=== PATIENT | male | born 1935 | race Caucasian/White ===

== ENCOUNTER 2016-08-25 19:18 | Inpatient (IN) | payer MEDICARE ==
[2016-08-25] MEDS ORDERED: NS 0.9% 1000 ML* 1,000 ML IV ONE (20:11)
[2016-08-25] MEDS ORDERED: Acetaminophen TAB* 325 MG PO ONE (20:11)
--- NOTE | 2016-08-25 20:28 | ED ---
Elder Veras Adam, scribed for Sang Awad MD on 08/25/16 at 2004 . HPI Febrile Illness - HPI Summary HPI Summary: Pt is an 80 year old male presenting with a febrile illness. He has not been feeling well since yesterday with generalized weakness and fatigue. His temperature was 102 F at home today. He has not taken anything for the fever. He also reports some constipation. He denies vomiting and diarrhea. Pt has an ostomy and he has had sepsis before. PMHx of HTN, A Fib, DVT, and bladder/ prostate CA. Surgical Hx of cystectomy and nephrectomy. - History of Current Complaint Chief Complaint: EDFever Time Seen by Provider: 08/25/16 19:57 Hx Obtained From: Patient Onset/Duration: Started Days Ago, Atraumatic, Still Present Timing: Constant, Lasting Days Initial Severity: Moderate Current Severity: Moderate Aggravating Factors: Nothing Alleviating Factors: Nothing - Hasn't taken anything Associated Signs and Symptoms: Weakness - Allergy/Home Medications Allergies/Adverse Reactions: Allergies Allergy/AdvReac Type Severity Reaction Status Date / Time Cephalexin [From Keflex] Allergy Rash And Verified 08/25/16 19:28 Itching Sulfamethoxazole Allergy Swelling Verified 08/25/16 19:28 w/Trimethoprim Of [From Bactrim] Face,Lips,& Throat Atorvastatin [From Lipitor] AdvReac Muscle Ache Verified 08/26/16 00:32 Ezetimibe [From Zetia] AdvReac Muscle Ache Verified 08/26/16 00:32 Gemfibrozil [From Lopid] AdvReac Muscle Ache Verified 08/26/16 00:32 PMH/Surg Hx/FS Hx/Imm Hx Endocrine/Hematology History: Reports: Hx Anticoagulant Therapy Comment Only: Hx Thyroid Disease - family hx Cardiovascular History: Reports: Hx Angina, Hx Deep Vein Thrombosis, Hx Hypertension, Hx Syncope, Other Cardiovascular Problems/Disorders - A-FIB, PATIENT STATES BEING CARED FOR BY DR. 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 2011-KIDNEY REMOVAL. 4-5 YRS AGO- RIGHT EYE CATARACT SURGERY Hx Anesthesia Reactions: No Infectious Disease History: Yes Infectious Disease History: Denies: Hx Clostridium Difficile, Hx Hepatitis, Hx Human Immunodeficiency Virus (HIV), Traveled Outside the [place] in Last 30 Days - Family History Known Family History: Positive: Other - Negative: malignant hyperthermia, anesthesia reaction - Social History Occupation: Retired Lives: Alone Alcohol Use: None Hx Substance Use: No Substance Use Type: Reports: None Hx Tobacco Use: No Smoking Status (MU): Never Smoked Tobacco Review of Systems Positive: Fever Positive: Other - Constipation. Negative: Vomiting, Diarrhea Positive: Weakness All Other Systems Reviewed And Are Negative: Yes Physical Exam Triage Information Reviewed: Yes Vital Signs On Initial Exam: Initial Vitals Temp Pulse Resp BP Pulse Ox 101.5 F 109 18 142/75 94 08/25/16 19:19 08/25/16 19:19 08/25/16 19:19 08/25/16 19:19 08/25/16 19:19 Vital Signs Reviewed: Yes Appearance: Positive: No Pain Distress, Ill-Appearing Skin: Positive: Warm, Dry Eyes: Positive: BEKAH ENT: Positive: Hearing grossly normal Neck: Positive: Supple Respiratory/Lung Sounds: Positive: Clear to Auscultation Cardiovascular: Positive: RRR Abdomen Description: Positive: Nontender, Soft, Other: - draining urostomy Bowel Sounds: Positive: Present Musculoskeletal: Positive: Strength/ROM Intact Neurological: Positive: Alert, Oriented to Person Place, Time Psychiatric: Positive: Affect/Mood Appropriate Diagnostics - Vital Signs Vital Signs Temp Pulse Resp BP Pulse Ox 08/25/16 19:19 101.5 F 109 18 142/75 94 - Laboratory Result Diagrams: 08/25/16 20:25 08/25/16 20:25 Lab Statement: Any lab studies that have been ordered have been reviewed, and results considered in the medical decision making process. - Radiology CXR Radiology Interpretation Completed By: Radiologist - IMPRESSION: NO ACTIVE DISEASE. - EKG 20:56 Cardiac Rate: NL - 89 BPM EKG Rhythm: Atrial Fibrillation - Moderate ventricular response - Additional Comments Diagnostic Additional Comments: Troponin I - 0.06 Course/Dx - Diagnoses Provider Diagnoses: UTI (urinary tract infection) - Provider Notifications Discussed Care Of Patient With: Dr. Alejandra. Patient will be admitted. Instructed by Provider To: Admit As Inpatient Discharge - Discharge Plan Condition: Guarded Disposition: ADMITTED TO [facility] documentation as recorded by the Elder huynh Adam accurately reflects the service I personally performed and the decisions made by me, Sang Awad MD.
[2016-08-25 20:39] LABS: Hematocrit 37 % (42-52); Mean Corpuscular HGB Conc 33 g/dl (31-36); Mean Corpuscular Hemoglobin 31 pg (27-31); Mean Corpuscular Volume 94 fL (80-94); Mean Platelet Volume 9 um3 (7.4-10.4); Red Blood Count 3.95 10^6/ul (4.0-5.4); Red Cell Distribution Width 15 % (10.5-15); White Blood Count 5.5 10^3/ul (3.5-10.8)
[2016-08-25 20:55] LABS: Albumin 3.3 g/dL (3.2-5.2); BUN/Creatinine Ratio 16.8 (8-20); Calcium 8.6 mg/dL (8.6-10.3); EGFR African American 67.7 (>60); EGFR Non-African American 52.6 (>60); Globulin 2.3 g/dL (2-4); Magnesium 1.8 mg/dL (1.9-2.7); Potassium 3.9 mmol/L (3.5-5.0); Total Bilirubin 0.9 mg/dL (0.2-1.0); Total Protein 5.6 g/dL (6.4-8.9)
[2016-08-25 20:58] LABS: Troponin I 0.06 ng/mL (<0.04)
--- NOTE | 2016-08-25 21:05 | RAD ---
INDICATION: Fever COMPARISON: December 19, 2012 TECHNIQUE: AP seated and lateral views were obtained. FINDINGS: Bones/Soft Tissues: There are no acute bony findings. Cardiomediastinal: The cardiomediastinal silhouette is normal. Lungs: There are no infiltrates. Pleura: There are no pleural effusions. Other: None IMPRESSION: NO ACTIVE DISEASE.
[2016-08-25 21:33] LABS: TSH (Thyroid Stimulating Horm) 3.23 mcIU/mL (0.34-5.60)
[2016-08-25 23:26] LABS: Urine Bacteria 1+ (Absent); Urine Bilirubin Negative (Negative); Urine Glucose Negative (Negative); Urine Nitrite Positive (Negative)
[2016-08-26] MEDS ORDERED: Melatonin (NF) 3 MG TAB PO PRN (00:29)
[2016-08-26] MEDS ORDERED: Ondansetron INJ* 2 MG/ML VIAL IV PRN (00:29)
[2016-08-26] MEDS ORDERED: NS 0.9% 1000 ML* 1,000 ML IV SCH (00:30)
[2016-08-26] MEDS ORDERED: Vancomycin per Pharmacy* NOTE FOLLOW UP PRN (00:38)
[2016-08-26] MEDS ORDERED: Vancomycin(*) 1,500 MG in NS 0.9% 250 ML* 250 ML IVPB ONE (01:00)
--- NOTE | 2016-08-26 01:46 | HP ---
H&P (Free Text) History and Physical: PCP: Robert Madrigal MD Date/Time of Evaluation: 08/25/2016 CC: fever HPI: Mr Ivan is an 80M HX AFIB, bladder CA presents with onset over the past 24hours of malaise, generalized weakness with finding of fever up to 102F at home which prompted him to present. He denies cough, congestion, sweats, abdominal pain, open wound, or other issues. He does have frequent UTIs and had a urine CX done 08/16/2016 in anticipation of having his ureteral stent replaced by Bruna Morrison MD interventional radiology this coming Tuesday. He was to hold his warfarin for this procedure starting tomorrow. Work up reveals a UTI with multiple resistances per recent CX complicated by multiple ABX allergies. As such he will be admitted for febrile UTI for IV ABX. PMedHx bladder CA solitary R kidney pAFIB HTN muscular dystrophy restrictive lung disease ISABEL on oxygen HS post-operative RLE arterial embolus s/p thrombectomy & fasciotomy Allergies Cephalexin [From Keflex] Allergy (Verified 08/25/16 19:28) Rash And Itching Sulfamethoxazole w/Trimethoprim [From Bactrim] Allergy (Verified 08/25/16 19:28) Swelling Of Face,Lips,& Throat Atorvastatin [From Lipitor] Adverse Reaction (Verified 08/26/16 00:32) Muscle Ache Ezetimibe [From Zetia] Adverse Reaction (Verified 08/26/16 00:32) Muscle Ache Gemfibrozil [From Lopid] Adverse Reaction (Verified 08/26/16 00:32) Muscle Ache Ambulatory Orders Warfarin Sodium 2 tab PO DAILY 11/07/12 Digoxin TAB* [Lanoxin TAB*] 0.25 mg PO DAILY 05/05/16 Diltiazem CD CAP* [Cardizem CD CAP*] 180 mg PO DAILY 05/05/16 Metoprolol Tartrate TAB* [Lopressor TAB*] 25 mg PO BID 05/05/16 Doxazosin Mesylate [Cardura] 2 mg PO QPM 05/11/16 Ferrous Sulfate [Iron (Ferrous Sulfate)] 50 mg PO DAILY 06/09/16 Multiple Vitamin [Multivitamins] 1 cap PO DAILY 06/09/16 PSurgHx L nephrectomy complicated by RLE arterial embolus w/ thrombectomy & fasciotomy urostomy OU cataract extraction SocHx: no tobacco, alcohol, or recreational drugs; 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 Mother passed of CVA at 102. ROS: as above, otherwise reviewed and all were negative Constitutional: NAD, normally developed, obese white male vitals: Vital Signs Temp 38.0 C 08/26/16 01:07 Pulse 88 08/26/16 01:07 Resp 22 08/26/16 01:07 BP 119/60 08/26/16 01:07 Pulse Ox 94 08/26/16 01:07 Intake & Output 08/25/16 08/25/16 08/26/16 11:59 23:59 11:59 Intake Total 1000 Balance 1000 Weight 111.13 kg Intake: IV Fluids 1000 HEENM: atraumatic; sclera/conjunctiva: non-icteric/clear; hearing: clinically intact; oropharynx: clear, mucosa moist Neck: soft tissue: no nuchal rigidity; thyroid: normal Pulmonary: clear to auscultation bilaterally, good aeration, no accessory muscle use CV: RR/RR, normal S1S2, no carotid bruit, no jugular venous distention, 1+ B DP/ PT, 2+ chronic BLE edema Abdominal: soft, non-distended, non-tender, no rebound/guarding/rigidity, normoactive bowel sounds, no hepatosplenomegaly or masses, no costovertebral angle tenderness Musculoskeletal: general: grossly intact; gait: uses electric wheelchair Integumental: normal appearance and texture Psychiatric orientation: AA&O to PPS affect: calm mood: pleasant eye contact: good content: reliable responses: timely insight: good Testing: Lab Results 08/25/16 08/25/16 08/25/16 Range/Units 20:25 20:25 20:25 WBC 5.5 (3.5-10.8) 10^3/ul RBC 3.95 L (4.0-5.4) 10^6/ul Hgb 12.0 L (14.0-18.0) g/dl Hct 37 L (42-52) % MCV 94 (80-94) fL MCH 31 (27-31) pg MCHC 33 (31-36) g/dl RDW 15 (10.5-15) % Plt Count 122 L (150-450) 10^3/ul MPV 9 (7.4-10.4) um3 Neut % (Auto) 78.2 (38-83) % Lymph % (Auto) 4.7 L (25-47) % Lassen % (Auto) 16.8 H (1-9) % Eos % (Auto) 0.1 (0-6) % Baso % (Auto) 0.2 (0-2) % Absolute Neuts (auto) 4.3 (1.5-7.7) 10^3/ul Absolute Lymphs (auto) 0.3 L (1.0-4.8) 10^3/ul Absolute Monos (auto) 0.9 H (0-0.8) 10^3/ul Absolute Eos (auto) 0 (0-0.6) 10^3/ul Absolute Basos (auto) 0 (0-0.2) 10^3/ul Absolute Nucleated RBC 0 10^3/ul Nucleated RBC % 0 Sodium 136 (133-145) mmol/L Potassium 3.9 (3.5-5.0) mmol/L Chloride 101 (101-111) mmol/L Carbon Dioxide 30 (22-32) mmol/L Anion Gap 5 (2-11) mmol/L BUN 22 (6-24) mg/dL Creatinine 1.31 H (0.67-1.17) mg/dL Est GFR ( Amer) 67.7 (>60) Est GFR (Non-Af Amer) 52.6 (>60) BUN/Creatinine Ratio 16.8 (8-20) Glucose 128 H (70-100) mg/dL Lactic Acid 1.3 (0.5-2.0) mmol/L Calcium 8.6 (8.6-10.3) mg/dL Magnesium 1.8 L (1.9-2.7) mg/dL Total Bilirubin 0.90 (0.2-1.0) mg/dL AST 11 L (13-39) U/L ALT 14 (7-52) U/L Alkaline Phosphatase 44 (34-104) U/L Troponin I 0.06 H* (<0.04) ng/mL Total Protein 5.6 L (6.4-8.9) g/dL Albumin 3.3 (3.2-5.2) g/dL Globulin 2.3 (2-4) g/dL Albumin/Globulin Ratio 1.4 (1-3) TSH 3.23 (0.34-5.60) mcIU/mL Urine Color Urine Appearance Urine pH (5-9) Ur Specific [place] (1.010-1.030) Urine Protein (Negative) Urine Ketones (Negative) Urine Blood (Negative) Urine Nitrate (Negative) Urine Bilirubin (Negative) Urine Urobilinogen (Negative) Ur Leukocyte Esterase (Negative) Urine WBC (Auto) (Absent) Urine RBC (Auto) (Absent) Urine Bacteria (Absent) Urine Glucose (Negative) Influenza A (Rapid) (Negative) Influenza B (Rapid) (Negative) 08/25/16 08/25/16 08/25/16 Range/Units 23:00 23:23 23:40 WBC (3.5-10.8) 10^3/ul RBC (4.0-5.4) 10^6/ul Hgb (14.0-18.0) g/dl Hct (42-52) % MCV (80-94) fL MCH (27-31) pg MCHC (31-36) g/dl RDW (10.5-15) % Plt Count (150-450) 10^3/ul MPV (7.4-10.4) um3 Neut % (Auto) (38-83) % Lymph % (Auto) (25-47) % Lassen % (Auto) (1-9) % Eos % (Auto) (0-6) % Baso % (Auto) (0-2) % Absolute Neuts (auto) (1.5-7.7) 10^3/ul Absolute Lymphs (auto) (1.0-4.8) 10^3/ul Absolute Monos (auto) (0-0.8) 10^3/ul Absolute Eos (auto) (0-0.6) 10^3/ul Absolute Basos (auto) (0-0.2) 10^3/ul Absolute Nucleated RBC 10^3/ul Nucleated RBC % Sodium (133-145) mmol/L Potassium (3.5-5.0) mmol/L Chloride (101-111) mmol/L Carbon Dioxide (22-32) mmol/L Anion Gap (2-11) mmol/L BUN (6-24) mg/dL Creatinine (0.67-1.17) mg/dL Est GFR ( Amer) (>60) Est GFR (Non-Af Amer) (>60) BUN/Creatinine Ratio (8-20) Glucose (70-100) mg/dL Lactic Acid (0.5-2.0) mmol/L Calcium (8.6-10.3) mg/dL Magnesium (1.9-2.7) mg/dL Total Bilirubin (0.2-1.0) mg/dL AST (13-39) U/L ALT (7-52) U/L Alkaline Phosphatase (34-104) U/L Troponin I 0.06 H* (<0.04) ng/mL Total Protein (6.4-8.9) g/dL Albumin (3.2-5.2) g/dL Globulin (2-4) g/dL Albumin/Globulin Ratio (1-3) TSH (0.34-5.60) mcIU/mL Urine Color Danette Urine Appearance Cloudy Urine pH 5.0 (5-9) Ur Specific [place] 1.023 (1.010-1.030) Urine Protein 2+(100 mg/dl) H (Negative) Urine Ketones Negative (Negative) Urine Blood 2+ H (Negative) Urine Nitrate Positive H (Negative) Urine Bilirubin Negative (Negative) Urine Urobilinogen Negative (Negative) Ur Leukocyte Esterase 3+ H (Negative) Urine WBC (Auto) 3+(>20/hpf) H (Absent) Urine RBC (Auto) 3+(>10/hpf) H (Absent) Urine Bacteria 1+ H (Absent) Urine Glucose Negative (Negative) Influenza A (Rapid) Negative (Negative) Influenza B (Rapid) Negative (Negative) ECG, personally reviewed: AFIB rate 89, no ischemia CXR, personally reviewed: IMPRESSION: NO ACTIVE DISEASE. Impression: 80M presenting with fever 2nd complex UTI DIAGNOSIS & PLAN Primary fever 2nd complicated UTI : IV vancomycin & meropenem : monitor renal function elevated troponin : suspect demand ischemia : telemetry : trend : recheck ECG in AM Secondary bladder CA : HX L nephrectomy & urostomy : monitor renal function while on vancomycin pAFIB : rate controlled : continue warfarin, metoprolol, diltiazem, & digoxin HTN : continue metoprolol & diltiazem restrictive lung disease : no acute issues ISABEL : continue oxygen HS Admission Rational: inpatient for complicated UTI requiring IV ABX & monitoring of elevated troponin DVTp: warfarin once dosage reconciled Code Status: full HCP: daughterCarlotta
[2016-08-26] MEDS: Meropenem 1 GM PREMIX(*) 1 GM/50 ML BAG IV SCH ×3 (02:47→17:53)
[2016-08-26] MEDS ORDERED: NS 0.9% 250 ML* 250 ML ONE (03:31)
[2016-08-26] MEDS: Omeprazole CAP* 20 MG PO SCH (05:39)
[2016-08-26 07:49] LABS: Hematocrit 33 % (42-52); Hemoglobin 10.8 g/dl (14.0-18.0); Mean Corpuscular HGB Conc 33 g/dl (31-36); Mean Corpuscular Hemoglobin 31 pg (27-31); Mean Corpuscular Volume 94 fL (80-94); Mean Platelet Volume 9 um3 (7.4-10.4); Red Blood Count 3.49 10^6/ul (4.0-5.4); Red Cell Distribution Width 15 % (10.5-15); White Blood Count 4.8 10^3/ul (3.5-10.8)
[2016-08-26 08:09] LABS: BUN/Creatinine Ratio 16.9 (8-20); Calcium 8.2 mg/dL (8.6-10.3); EGFR African American 64.8 (>60); EGFR Non-African American 50.4 (>60); Potassium 4.3 mmol/L (3.5-5.0)
[2016-08-26 08:13] LABS: Add Diff/Slide Review? Slide Review Added; Comments Flag Yes
[2016-08-26 08:17] LABS: Troponin I 0.05 ng/mL (<0.04)
[2016-08-26] MEDS: Digoxin TAB* 0.25 MG PO SCH (08:56)
[2016-08-26] MEDS: Docusate CAP* 100 MG PO SCH ×2 (08:56→21:32)
[2016-08-26] MEDS: Metoprolol Tartrate TAB* 25 MG PO SCH ×2 (08:56→21:32)
[2016-08-26] MEDS: Diltiazem CD CAP* 180 MG PO SCH (08:57)
--- NOTE | 2016-08-26 14:30 | PN ---
Subjective Date of Service: 08/26/16 Interval History: patient reports he feels much better today. Denies fever or chills. reports good appetite. No N/V/D. Objective Active Medications: Acetaminophen (Tylenol Tab*) 650 mg PO Q6H PRN PRN Reason: FEVER/PAIN Digoxin (Lanoxin Tab*) 0.25 mg PO DAILY [facility] Last Admin: 08/26/16 08:56 Dose: 0.25 mg Diltiazem HCl (Cardizem Cd Cap*) 180 mg PO DAILY [facility] Last Admin: 08/26/16 08:57 Dose: 180 mg Docusate Sodium (Colace Cap*) 200 mg PO BID [facility] Last Admin: 08/26/16 08:56 Dose: 200 mg Doxazosin Mesylate (Cardura Tab*) 2 mg PO QPM [facility] Sodium Chloride (Ns 0.9% 1000 Ml*) 1,000 mls @ 75 mls/hr IV PER RATE [facility] Meropenem (Merrem 1 Gm Premix(*)) 1 gm in 50 mls @ 100 mls/hr IV Q8H [facility] Last Admin: 08/26/16 08:57 Dose: 100 mls/hr Vancomycin HCl 1,250 mg/ (Sodium Chloride) 250 mls @ 166.667 mls/hr IVPB Q12H [facility] Melatonin (Melatonin (Nf)) 3 mg PO BEDTIME PRN; Protocol PRN Reason: Sleep Metoprolol Tartrate (Lopressor Tab*) 25 mg PO BID [facility] Last Admin: 08/26/16 08:56 Dose: 25 mg Omeprazole (Prilosec Cap*) 20 mg PO DAILY@0600 [facility] Last Admin: 08/26/16 05:39 Dose: 20 mg Ondansetron HCl (Zofran Inj*) 4 mg IV Q6H PRN PRN Reason: NAUSEA Pharmacy Consult (Vancomycin Per Pharmacy*) 1 note FOLLOW UP . PRN PRN Reason: PER PROTOCOL Pharmacy Profile Note (Vancomycin Trough Check) 1 note FOLLOW UP 1530 ONE Stop: 08/27/16 15:31 Vital Signs 08/26/16 08/26/16 08/26/16 01:07 02:11 02:55 Temperature 100.4 F 99.6 F 99.6 F Pulse Rate 88 93 93 Respiratory 22 25 25 Rate Blood Pressure 119/60 117/58 117/58 (mmHg) O2 Sat by Pulse 94 96 96 Oximetry 08/26/16 08/26/16 08/26/16 04:21 07:31 07:38 Temperature 100.2 F 99.3 F Pulse Rate 87 96 Respiratory 16 22 18 Rate Blood Pressure 124/62 129/69 (mmHg) O2 Sat by Pulse 100 98 Oximetry 08/26/16 08/26/16 08/26/16 07:54 07:56 08:56 Temperature Pulse Rate 96 Respiratory 16 Rate Blood Pressure (mmHg) O2 Sat by Pulse 98 Oximetry 08/26/16 08/26/16 09:12 12:13 Temperature 99.0 F 98.6 F Pulse Rate 103 82 Respiratory 28 20 Rate Blood Pressure 125/60 111/60 (mmHg) O2 Sat by Pulse 97 99 Oximetry Oxygen Devices in Use Now: None Appearance: 80 yo male A+O x3 in NAD. Eyes: No Scleral Icterus, PERRLA Ears/Nose/Mouth/Throat: NL Teeth, Lips, Gums, Mucous Membranes Moist Neck: NL Appearance and Movements; NL JVP Respiratory: Symmetrical Chest Expansion and Respiratory Effort, Clear to Auscultation Cardiovascular: NL Sounds; No Murmurs; No JVD, RRR, - - 2-3+ edema b/l Abdominal: NL Sounds; No Tenderness; No Distention, - - nephrostomy tube noted draining clear yellow urine Skin: No Rash or Ulcers, No Nodules or Sclerosis Neurological: Alert and Oriented x 3, NL Sensation, NL Muscle Strength and Tone Lines/Tubes/Other Access: Clean, Dry and Intact Peripheral IV Nutrition: Taking PO's Result Diagrams: 08/26/16 07:32 08/26/16 07:32 Assess/Plan/Problems-Billing Assessment: 80 yo male with PMH of afib, bladder CA, solitary right kidney, CKD , hx of freqeunt UTIs, with nephrostomy tube with current ureteral stent presents with onset of malaise, generalized weakness, fever 102 for 24 hours - Patient Problems (1) Fever Comment: - Afebrile. No leukocytosis. - suspect secondary to UTI and stent. - ID following. Agrees with Vanco & Meropenum until cultures result. - Plan for IR to exchange nephrostomy & stent on Tuesday - await cxs (2) Elevated troponin Comment: - Troponins 0.06, 0.06, 0.05 - suspect demand ischemia. No CP or EKG changes. - DC tele (3) Bladder cancer Comment: - Hx of left nephrectomy and urostomy (4) Afib Comment: - Hold coumadin for stent/nephrostomy exchange tuesday - continue digoxin, cardizem, metoprolol (5) Chronic kidney disease Comment: - appears to be around baseline (6) HTN (hypertension) Comment: - controlled on home meds. (7) ISABEL (obstructive sleep apnea) Comment: - oxygen at night and while sleeping (8) DVT prophylaxis Comment: - INR 1.73 (9) Full code status Status and Disposition: inpatient. await cultures and continue IV abx. Plan for IR stent exchange Tuesday.
[2016-08-26] MEDS: Vancomycin(*) 1,250 MG in NS 0.9% 250 ML* 250 ML IVPB SCH (15:52)
--- NOTE | 2016-08-26 15:57 | CONS ---
DATE OF CONSULT: 08/26/2016. REQUESTING PHYSICIAN: Dr. Alejandra. CONSULTING SERVICE: Infectious Disease. REASON FOR CONSULT: Fever, urinary tract infection. IMPRESSION: 1. Three days of fever, anorexia, malaise without focal signs or symptoms. His influenza PCR is ne gative. Blood and urine cultures are pending. He does have significant urinary tract abnormalities which may get the most likely source of infection, including urinary tract infection and pigtail dr kirann infection. Urine culture end of July grew Providencia, MRSA, and enterococcus. 2. History of bladder cancer, status post cystectomy and ileal conduit, and now with a urinary ileo stomy catheter which is exchanged every six weeks by Dr. Morrison. 3. Status post left nephrectomy. 4. ALLERGY TO KEFLEX AND BACTRIM, both of which cause rash according his primary care doctor's offi ce notes. 5. Muscular dystrophy. RECOMMENDATION: Continue Vancomycin, goal trough 15 to 20 and Meropenem while we are awaiting for t he urine and blood culture results. He is due for a stent change on Tuesday. I do still think he sh ould have the exchange while on IV antibiotics for the presumed stent infection. HISTORY OF PRESENT ILLNESS: This is an 81-year-old man with muscular dystrophy and right-sided ilea l conduit and ileal conduit urinary ileostomy catheter admitted with fever and chills. He had been well until Tuesday when he started to get chills, sweats, decreased appetite. It got worse over the next two days. His temperature was 102 on the night of the , so he came in to the ER. His whit e blood cell count was 5, he was febrile to 38.6. He was given fluids and Vancomycin and Meropenem. He had a urine culture on August 16 that grew Providencia, MRSA, and enterococcus. 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 His last fever was at one in the morning. This morning h e says his energy and appetite are a little bit better. He has had no pain, including no joint or s pine pain, no rash or diarrhea, and no other abdominal symptoms. No cough or significant muscle ach es. PAST MEDICAL HISTORY: 1. Muscular dystrophy. 2. Atrial fibrillation. 3. Hypertension. 4. Restrictive lung disease. 5. Obstructive sleep apnea. 6. History of right lower extremity arterial thrombus, status post thrombectomy and fasciotomy lynn gallegos was a postoperative thrombus. 7. Bladder cancer, status post cystectomy and ileal conduit and then a subsequent left nephrectomy, now with a urinary ileostomy catheter and ureteral stent. MEDICATIONS: Tylenol, Digoxin, Diltiazem, Doxazosin, Melatonin, Meropenem 1 gm every 8 hours, Metop rolol, Omeprazole, Zofran, Vancomycin 1250 mg every 12 hours. ALLERGIES: KEFLEX CAUSED RASH, LIPITOR, ZETIA, BACTRIM. FAMILY HISTORY: His father had a stroke, mother had a stroke, they are both . SOCIAL HISTORY: Lives in [place] with his . He has no travel or sick contacts. REVIEW OF SYSTEMS: Twelve point review of systems was obtained. It was negative as noted above. PHYSICAL EXAM: General: He is not distressed or diaphoretic. Vital Signs: Temperature 37, heart r ate 100, respiratory rate 20, blood pressure 120/60, O2 sat 97 percent on room air. HEENT: There i s no conjunctival hemorrhage. Oropharynx without lesions. Neck: Supple without nuchal rigidity. Lymph Nodes: There is no cervical, supraclavicular, inguinal, axillary, or epitrochlear lymphadenop athy. Heart: Regular rate and rhythm without murmurs, rubs or gallops. Lungs: Clear to auscultati on bilaterally. Abdomen: Soft, nontender, nondistended. There is a right lower quadrant ileostomy bag with clear urine and air. Musculoskeletal: There is no spine tenderness of palpation or joint synovitis. Neurological: He is awake and oriented times three, follows all commands. Cranial nerve s II through XII are intact. DIAGNOSTIC STUDIES/LAB DATA: White blood cell count 4.8, hemoglobin 10.8, platelets 99,000. Creati nine 1.3. Influenza PCR negative. Urinalysis shows protein, blood, nitrates, and leukocyte esteras e. Please see impressions and recommendation as outlined above. I have discussed the case with Evens Goldman ch, NP and Dr. Cervantes. Thank you for asking me to see Mr. Love in consultation. [id number]/[facility] #: [id number]
[2016-08-26] MEDS: Doxazosin TAB* 2 MG PO SCH (17:53)
[2016-08-26] MEDS: NS 0.9% 1000 ML* 1,000 ML IV SCH (21:33)
[2016-08-27] MEDS: Meropenem 1 GM PREMIX(*) 1 GM/50 ML BAG IV SCH ×2 (02:15→08:29)
[2016-08-27] MEDS: Vancomycin(*) 1,250 MG in NS 0.9% 250 ML* 250 ML IVPB SCH ×2 (04:13→16:06)
[2016-08-27] MEDS: Acetaminophen TAB* 325 MG PO PRN (04:21)
[2016-08-27 06:00] LABS: Hematocrit 34 % (42-52); Hemoglobin 10.8 g/dl (14.0-18.0); Mean Corpuscular HGB Conc 32 g/dl (31-36); Mean Corpuscular Hemoglobin 31 pg (27-31); Mean Corpuscular Volume 97 fL (80-94); Red Blood Count 3.49 10^6/ul (4.0-5.4); Red Cell Distribution Width 15 % (10.5-15)
[2016-08-27 06:02] LABS: Comments Flag Yes
[2016-08-27 06:03] LABS: Add Diff/Slide Review? Manual Diff Added
[2016-08-27] MEDS: Omeprazole CAP* 20 MG PO SCH (06:13)
[2016-08-27 06:22] LABS: Calcium 8.2 mg/dL (8.6-10.3); EGFR African American 70.2 (>60); EGFR Non-African American 54.6 (>60); Potassium 4.2 mmol/L (3.5-5.0)
[2016-08-27 06:29] LABS: White Blood Count 5.2 10^3/ul (3.5-10.8)
[2016-08-27 06:33] LABS: Eosinophils % 2 % (0-6); Hypochromasia 1+; Immature Granulocytes 1 % (0-9); Neutrophil % 66 % (38-83)
[2016-08-27 06:35] LABS: Add Path Review? YES
--- NOTE | 2016-08-27 07:33 | PN ---
Subjective Date of Service: 08/27/16 Interval History: . Patient reports he feels much better. Denies fever or chills. No N/V/D. No CP or SOB Objective Active Medications: Acetaminophen (Tylenol Tab*) 650 mg PO Q6H PRN PRN Reason: FEVER/PAIN Last Admin: 08/27/16 04:21 Dose: 650 mg Digoxin (Lanoxin Tab*) 0.25 mg PO DAILY [facility] Last Admin: 08/26/16 08:56 Dose: 0.25 mg Diltiazem HCl (Cardizem Cd Cap*) 180 mg PO DAILY [facility] Last Admin: 08/26/16 08:57 Dose: 180 mg Docusate Sodium (Colace Cap*) 200 mg PO BID [facility] Last Admin: 08/26/16 21:32 Dose: 200 mg Doxazosin Mesylate (Cardura Tab*) 2 mg PO QPM [facility] Last Admin: 08/26/16 17:53 Dose: 2 mg Meropenem (Merrem 1 Gm Premix(*)) 1 gm in 50 mls @ 100 mls/hr IV Q8H [facility] Last Admin: 08/27/16 02:15 Dose: 100 mls/hr Vancomycin HCl 1,250 mg/ (Sodium Chloride) 250 mls @ 166.667 mls/hr IVPB Q12H [facility] Last Admin: 08/27/16 04:13 Dose: 166.667 mls/hr Sodium Chloride (Ns 0.9% 1000 Ml*) 1,000 mls @ 50 mls/hr IV PER RATE [facility] Last Admin: 08/26/16 21:33 Dose: 50 mls/hr Melatonin (Melatonin (Nf)) 3 mg PO BEDTIME PRN; Protocol PRN Reason: Sleep Metoprolol Tartrate (Lopressor Tab*) 25 mg PO BID [facility] Last Admin: 08/26/16 21:32 Dose: 25 mg Omeprazole (Prilosec Cap*) 20 mg PO DAILY@0600 [facility] Last Admin: 08/27/16 06:13 Dose: 20 mg Ondansetron HCl (Zofran Inj*) 4 mg IV Q6H PRN PRN Reason: NAUSEA Pharmacy Consult (Vancomycin Per Pharmacy*) 1 note FOLLOW UP . PRN PRN Reason: PER PROTOCOL Pharmacy Profile Note (Vancomycin Trough Check) 1 note FOLLOW UP 1530 ONE Stop: 08/27/16 15:31 Vital Signs 08/26/16 08/26/16 08/26/16 07:31 07:38 07:54 Temperature 99.3 F Pulse Rate 96 Respiratory 22 18 16 Rate Blood Pressure 129/69 (mmHg) O2 Sat by Pulse 98 Oximetry 08/26/16 08/26/16 08/26/16 07:56 08:56 09:12 Temperature 99.0 F Pulse Rate 96 103 Respiratory 28 Rate Blood Pressure 125/60 (mmHg) O2 Sat by Pulse 98 97 Oximetry 08/26/16 08/26/16 08/26/16 12:13 15:16 20:00 Temperature 98.6 F 100.1 F Pulse Rate 82 85 Respiratory 20 20 28 Rate Blood Pressure 111/60 133/56 (mmHg) O2 Sat by Pulse 99 99 Oximetry 08/26/16 08/27/16 08/27/16 21:15 00:08 00:42 Temperature 98.4 F Pulse Rate 93 94 Respiratory 16 Rate Blood Pressure 119/63 117/56 (mmHg) O2 Sat by Pulse 98 99 98 Oximetry 08/27/16 08/27/16 03:35 04:30 Temperature 98.3 F Pulse Rate 89 Respiratory 20 Rate Blood Pressure 105/60 (mmHg) O2 Sat by Pulse 98 97 Oximetry Oxygen Devices in Use Now: None Appearance: eldelry male sitting up in bed in NAD. A+O x3 in NAD Eyes: No Scleral Icterus, PERRLA Ears/Nose/Mouth/Throat: NL Teeth, Lips, Gums, Mucous Membranes Moist Neck: NL Appearance and Movements; NL JVP Respiratory: Symmetrical Chest Expansion and Respiratory Effort, Clear to Auscultation Cardiovascular: NL Sounds; No Murmurs; No JVD, RRR, - - 2-3 + B/L LE edema Abdominal: NL Sounds; No Tenderness; No Distention Lymphatic: No Cervical Adenopathy Extremities: No Clubbing, Cyanosis Neurological: Alert and Oriented x 3, NL Sensation, NL Muscle Strength and Tone Lines/Tubes/Other Access: Clean, Dry and Intact Peripheral IV Nutrition: Taking PO's Result Diagrams: 08/27/16 05:40 08/27/16 05:40 Assess/Plan/Problems-Billing Assessment: 80 yo male with PMH of afib, bladder CA s/p Left nephrectomy, cystectomy and ileal conduit now with ileostomy catheter which is exchanged every six weeks, CKD, hx of frequent UTIs, presents with onset of malaise, generalized weakness, fever x 1 day - Patient Problems (1) Fever Comment: - Low grade temp yesterday, no afebrile. No leukocytosis. - suspect secondary to UTI and stent. - ID following. Continue Vanco & Meropenum until cultures result. Blood cx negative, urine cx still pending. - Plan for IR to exchange stent on Tuesday (2) Elevated troponin Comment: - Troponins 0.06, 0.06, 0.05 - suspect demand ischemia. No CP or EKG changes. - DC tele (3) Bladder cancer Comment: - Hx of left nephrectomy and urostomy (4) Afib Comment: - Hold coumadin for stent exchange tuesday - continue digoxin, cardizem, metoprolol (5) Chronic kidney disease Comment: - appears to be around baseline (6) HTN (hypertension) Comment: - controlled on home meds. (7) ISABEL (obstructive sleep apnea) Comment: - oxygen at night and while sleeping (8) DVT prophylaxis Comment: - INR 1.73 (9) Full code status Status and Disposition: inpatient. await cultures and continue IV abx. Plan for IR stent exchange Tuesday.
[2016-08-27] MEDS: Docusate CAP* 100 MG PO SCH ×2 (08:29→22:55)
[2016-08-27] MEDS: Diltiazem CD CAP* 180 MG PO SCH (08:29)
[2016-08-27] MEDS: Metoprolol Tartrate TAB* 25 MG PO SCH ×2 (08:30→22:56)
[2016-08-27] MEDS: Digoxin TAB* 0.25 MG PO SCH (08:30)
--- NOTE | 2016-08-27 14:12 | RAD ---
Indication: Urinary tract infection. Post LEFT nephrectomy. Comparison: January 22, 2011 CT. Technique: RIGHT unilateral renal ultrasound. Report: 15.1 x 6.7 x 4.9 cm RIGHT kidney demonstrates normal cortical echogenicity and absence of conspicuous stones, focal lesions, or hydronephrosis. Blood flow at the arcuate vessels demonstrated on Doppler. Negative for perinephric fluid. IMPRESSION: Negative RIGHT renal ultrasound.
[2016-08-27] MEDS ORDERED: Vancomycin Trough Check NOTE FOLLOW UP ONE (15:30)
[2016-08-27] MEDS: Doxazosin TAB* 2 MG PO SCH (17:44)
[2016-08-28] MEDS: Acetaminophen TAB* 325 MG PO PRN (00:04)
[2016-08-28] MEDS: NS 0.9% 1000 ML* 1,000 ML IV SCH (02:15)
[2016-08-28] MEDS: Vancomycin(*) 1,250 MG in NS 0.9% 250 ML* 250 ML IVPB SCH ×2 (04:37→15:37)
[2016-08-28] MEDS: Omeprazole CAP* 20 MG PO SCH (05:54)
[2016-08-28 06:09] LABS: Hematocrit 32 % (42-52); Hemoglobin 10.9 g/dl (14.0-18.0); Mean Corpuscular HGB Conc 34 g/dl (31-36); Mean Corpuscular Hemoglobin 32 pg (27-31); Mean Corpuscular Volume 94 fL (80-94); Mean Platelet Volume 9 um3 (7.4-10.4); Red Blood Count 3.43 10^6/ul (4.0-5.4); Red Cell Distribution Width 14 % (10.5-15); White Blood Count 2.4 10^3/ul (3.5-10.8)
[2016-08-28 06:10] LABS: Add Diff/Slide Review? Slide Review Added; Comments Flag Yes
[2016-08-28 06:23] LABS: BUN/Creatinine Ratio 21.1 (8-20); Calcium 8.2 mg/dL (8.6-10.3); EGFR African American 72.8 (>60); EGFR Non-African American 56.6 (>60); Potassium 4.5 mmol/L (3.5-5.0)
--- NOTE | 2016-08-28 08:09 | PN ---
Subjective Date of Service: 08/28/16 Interval History: Patient reports he continues to feel good and much better since admission. Denies fever or chills. No abdominal pain. No N/V/D. Objective Active Medications: Acetaminophen (Tylenol Tab*) 650 mg PO Q6H PRN PRN Reason: FEVER/PAIN Last Admin: 08/28/16 00:04 Dose: 650 mg Digoxin (Lanoxin Tab*) 0.25 mg PO DAILY [facility] Last Admin: 08/27/16 08:30 Dose: 0.25 mg Diltiazem HCl (Cardizem Cd Cap*) 180 mg PO DAILY [facility] Last Admin: 08/27/16 08:29 Dose: 180 mg Docusate Sodium (Colace Cap*) 200 mg PO BID [facility] Last Admin: 08/27/16 22:55 Dose: Not Given Doxazosin Mesylate (Cardura Tab*) 2 mg PO QPM [facility] Last Admin: 08/27/16 17:44 Dose: 2 mg Vancomycin HCl 1,250 mg/ (Sodium Chloride) 250 mls @ 166.667 mls/hr IVPB Q12H [facility] Last Admin: 08/28/16 04:37 Dose: 166.667 mls/hr Sodium Chloride (Ns 0.9% 1000 Ml*) 1,000 mls @ 50 mls/hr IV PER RATE [facility] Last Admin: 08/28/16 02:15 Dose: 50 mls/hr Melatonin (Melatonin (Nf)) 3 mg PO BEDTIME PRN; Protocol PRN Reason: Sleep Metoprolol Tartrate (Lopressor Tab*) 25 mg PO BID [facility] Last Admin: 08/27/16 22:56 Dose: 25 mg Omeprazole (Prilosec Cap*) 20 mg PO DAILY@0600 [facility] Last Admin: 08/28/16 05:54 Dose: 20 mg Ondansetron HCl (Zofran Inj*) 4 mg IV Q6H PRN PRN Reason: NAUSEA Pharmacy Consult (Vancomycin Per Pharmacy*) 1 note FOLLOW UP . PRN PRN Reason: PER PROTOCOL Vital Signs 08/27/16 08/27/16 08/27/16 08:25 08:30 16:27 Temperature 98.2 F Pulse Rate 63 89 90 Respiratory 16 22 Rate Blood Pressure 124/48 117/61 (mmHg) O2 Sat by Pulse 98 99 Oximetry 08/27/16 08/27/1608/27/17 16:28 20:00 22:52 Temperature Pulse Rate 96 Respiratory 20 Rate Blood Pressure 123/64 (mmHg) O2 Sat by Pulse 99 Oximetry 08/28/16 08/28/16 00:47 07:57 Temperature 98.9 F Pulse Rate 96 Respiratory 16 Rate Blood Pressure 135/60 (mmHg) O2 Sat by Pulse 98 97 Oximetry Oxygen Devices in Use Now: None Appearance: 80 yo male laying in bed in NAD. A+O x3 Eyes: No Scleral Icterus, PERRLA Ears/Nose/Mouth/Throat: NL Teeth, Lips, Gums, Mucous Membranes Moist Neck: NL Appearance and Movements; NL JVP Respiratory: Symmetrical Chest Expansion and Respiratory Effort, Clear to Auscultation Cardiovascular: NL Sounds; No Murmurs; No JVD, - - 2+ LE edema bilaterally - pt reports this is his baseline Abdominal: NL Sounds; No Tenderness; No Distention, - - Right lower quad ileostomy bag with clear yellow urine Extremities: No Clubbing, Cyanosis Neurological: Alert and Oriented x 3, NL Sensation, NL Muscle Strength and Tone Result Diagrams: 08/28/16 05:44 08/28/16 05:44 Assess/Plan/Problems-Billing Assessment: 80 yo male with PMH of afib, bladder CA s/p Left nephrectomy, cystectomy and ileal conduit now with ileostomy catheter which is exchanged every six weeks, CKD, hx of frequent UTIs, presents with onset of malaise, generalized weakness, fever x 1 day - Patient Problems (1) Fever Comment: - secondary to UTI and stent with urine cx now growing MRSA and Providencia Stuartii, sensitive to Vanco and Girish. Restart Girish as the colony count for PS on 08/16 was growing a colony count >100K. Blood cx negative. - afebrile > 24 hours. Leukopenia suspect secondary to illness, possible abx, recheck labs in am. - ID following. Continue Vanco and Girish - Plan for IR to exchange stent on Tuesday - Recheck labs in am. (2) Elevated troponin Comment: - Troponins 0.06, 0.06, 0.05 - suspect demand ischemia. No CP or EKG changes. - DC tele (3) Bladder cancer Comment: - Hx of left nephrectomy and urostomy (4) Afib Comment: - Hold coumadin for stent exchange tuesday - continue digoxin, cardizem, metoprolol (5) Chronic kidney disease Comment: - appears to be around baseline (6) HTN (hypertension) Comment: - controlled on home meds. (7) ISABEL (obstructive sleep apnea) Comment: - oxygen at night and while sleeping (8) DVT prophylaxis Comment: - INR 1.28 (9) Full code status Status and Disposition: inpatient. continue IV abx. Plan for IR stent exchange Tuesday.
[2016-08-28] MEDS: Docusate CAP* 100 MG PO SCH ×2 (09:25→22:56)
[2016-08-28] MEDS: Digoxin TAB* 0.25 MG PO SCH (09:25)
[2016-08-28] MEDS: Diltiazem CD CAP* 180 MG PO SCH (09:25)
[2016-08-28] MEDS: Metoprolol Tartrate TAB* 25 MG PO SCH ×2 (09:26→21:50)
[2016-08-28] MEDS ORDERED: Meropenem 1 GM PREMIX(*) 1 GM/50 ML BAG IV SCH (12:00)
[2016-08-28] MEDS: Doxazosin TAB* 2 MG PO SCH (17:34)
[2016-08-29] MEDS: Vancomycin(*) 1,250 MG in NS 0.9% 250 ML* 250 ML IVPB SCH ×2 (04:25→15:56)
[2016-08-29] MEDS: Omeprazole CAP* 20 MG PO SCH (05:56)
[2016-08-29 06:06] LABS: Calcium 8.2 mg/dL (8.6-10.3); EGFR African American 87.4 (>60)
[2016-08-29 06:09] LABS: Potassium 4.4 mmol/L (3.5-5.0)
[2016-08-29 07:42] LABS: Hematocrit 35 % (42-52); Hemoglobin 11.3 g/dl (14.0-18.0); Mean Corpuscular HGB Conc 33 g/dl (31-36); Mean Corpuscular Hemoglobin 31 pg (27-31); Mean Corpuscular Volume 95 fL (80-94); Mean Platelet Volume 9 um3 (7.4-10.4); Red Blood Count 3.66 10^6/ul (4.0-5.4); Red Cell Distribution Width 15 % (10.5-15)
[2016-08-29 07:43] LABS: Comments Flag Yes; White Blood Count 2.5 10^3/ul (3.5-10.8)
--- NOTE | 2016-08-29 08:28 | PN ---
Subjective Date of Service: 08/29/16 Interval History: Patient reports he "slept well for the first time since being here". Denies fever or chills. No SOB, CP. Offers no complaints today. Objective Active Medications: Acetaminophen (Tylenol Tab*) 650 mg PO Q6H PRN PRN Reason: FEVER/PAIN Last Admin: 08/28/16 00:04 Dose: 650 mg Digoxin (Lanoxin Tab*) 0.25 mg PO DAILY [facility] Last Admin: 08/28/16 09:25 Dose: 0.25 mg Diltiazem HCl (Cardizem Cd Cap*) 180 mg PO DAILY [facility] Last Admin: 08/28/16 09:25 Dose: 180 mg Docusate Sodium (Colace Cap*) 200 mg PO BID [facility] Last Admin: 08/28/16 22:56 Dose: Not Given Doxazosin Mesylate (Cardura Tab*) 2 mg PO QPM [facility] Last Admin: 08/28/16 17:34 Dose: 2 mg Vancomycin HCl 1,250 mg/ (Sodium Chloride) 250 mls @ 166.667 mls/hr IVPB Q12H [facility] Last Admin: 08/29/16 04:25 Dose: 166.667 mls/hr Melatonin (Melatonin (Nf)) 3 mg PO BEDTIME PRN; Protocol PRN Reason: Sleep Metoprolol Tartrate (Lopressor Tab*) 25 mg PO BID [facility] Last Admin: 08/28/16 21:50 Dose: 25 mg Omeprazole (Prilosec Cap*) 20 mg PO DAILY@0600 [facility] Last Admin: 08/29/16 05:56 Dose: 20 mg Ondansetron HCl (Zofran Inj*) 4 mg IV Q6H PRN PRN Reason: NAUSEA Pharmacy Consult (Vancomycin Per Pharmacy*) 1 note FOLLOW UP . PRN PRN Reason: PER PROTOCOL Vital Signs 08/28/16 08/28/16 08/28/16 07:57 08:00 08:35 Temperature 98.5 F Pulse Rate 88 Respiratory 16 16 Rate Blood Pressure 145/73 (mmHg) O2 Sat by Pulse 97 98 Oximetry 08/28/16 08/28/16 08/28/16 09:25 15:48 20:00 Temperature 98.0 F Pulse Rate 88 80 Respiratory 22 20 Rate Blood Pressure 125/66 (mmHg) O2 Sat by Pulse 94 Oximetry 08/28/16 08/28/16 08/29/16 20:16 21:49 00:25 Temperature 97.6 F Pulse Rate 82 77 Respiratory 16 Rate Blood Pressure 141/70 145/69 (mmHg) O2 Sat by Pulse 97 99 Oximetry 08/29/16 08:00 Temperature Pulse Rate Respiratory 20 Rate Blood Pressure (mmHg) O2 Sat by Pulse Oximetry Oxygen Devices in Use Now: None Appearance: 80 yo male sitting up in bed in NAD. A+O x3 Eyes: No Scleral Icterus, PERRLA Ears/Nose/Mouth/Throat: Mucous Membranes Moist Neck: NL Appearance and Movements; NL JVP Respiratory: Symmetrical Chest Expansion and Respiratory Effort, Clear to Auscultation Cardiovascular: NL Sounds; No Murmurs; No JVD, RRR, - - 2-3+ LE edema - per pt this is his baseline Abdominal: NL Sounds; No Tenderness; No Distention Extremities: No Clubbing, Cyanosis Skin: - - warm pink dry Neurological: Alert and Oriented x 3, NL Sensation, NL Muscle Strength and Tone Lines/Tubes/Other Access: Clean, Dry and Intact Peripheral IV Nutrition: Taking PO's Result Diagrams: 08/29/16 07:26 08/29/16 05:12 Assess/Plan/Problems-Billing Assessment: 80 yo male with PMH of afib, bladder CA s/p Left nephrectomy, cystectomy and ileal conduit now with ileostomy catheter which is exchanged every six weeks, CKD, hx of frequent UTIs, presents with onset of malaise, generalized weakness, fever x 1 day - Patient Problems (1) Fever Comment: - resolved - secondary to UTI and stent with urine cx now growing MRSA and Providencia Stuartii, sensitive to Vanco. Blood cx negative. - afebrile > 48 hours. Leukopenia suspect secondary to illness, possible abx, stable today, recheck labs in am. - ID following. Continue Vanco only - Plan for IR to exchange stent on Tuesday - Recheck labs in am. (2) Elevated troponin Comment: - Troponins 0.06, 0.06, 0.05 - suspect demand ischemia. No CP or EKG changes. - DC tele (3) Bladder cancer Comment: - Hx of left nephrectomy and urostomy (4) Afib Comment: - Hold coumadin for stent exchange tuesday - continue digoxin, cardizem, metoprolol - INR 1.16 (5) Chronic kidney disease Comment: - Acute on chronic Kidney disease. Creatinine is normal today. - appears to be around baseline (6) HTN (hypertension) Comment: - controlled on home meds. (7) ISABEL (obstructive sleep apnea) Comment: - oxygen at night and while sleeping (8) DVT prophylaxis Comment: - Give 1 dose of lovenox this morning, hold for procedure tomorrow. - SCDs (9) Full code status Status and Disposition: inpatient. continue IV abx. Plan for IR stent exchange Tuesday.
[2016-08-29] MEDS: Enoxaparin(*) 30 MG/0.3 ML SYR SUBCUT ONE ×2 (08:48→08:54)
[2016-08-29] MEDS: Diltiazem CD CAP* 180 MG PO SCH (08:48)
[2016-08-29] MEDS: Metoprolol Tartrate TAB* 25 MG PO SCH ×2 (08:49→20:41)
[2016-08-29] MEDS: Digoxin TAB* 0.25 MG PO SCH (08:49)
[2016-08-29] MEDS: Docusate CAP* 100 MG PO SCH ×2 (08:54→20:12)
[2016-08-29] MEDS: Doxazosin TAB* 2 MG PO SCH (17:37)
[2016-08-29] MEDS ORDERED: CMCS Melatonin (NF) 3 MG TAB PO PRN (22:07)
[2016-08-29] MEDS: Acetaminophen TAB* 325 MG PO PRN (22:48)
[2016-08-30] MEDS: Vancomycin(*) 1,250 MG in NS 0.9% 250 ML* 250 ML IVPB SCH (03:53)
[2016-08-30] MEDS: Omeprazole CAP* 20 MG PO SCH (05:28)
[2016-08-30 07:31] LABS: Hematocrit 35 % (42-52); Hemoglobin 11.3 g/dl (14.0-18.0); Mean Corpuscular HGB Conc 33 g/dl (31-36); Mean Corpuscular Hemoglobin 31 pg (27-31); Mean Corpuscular Volume 94 fL (80-94); Mean Platelet Volume 9 um3 (7.4-10.4); Red Blood Count 3.67 10^6/ul (4.0-5.4); Red Cell Distribution Width 15 % (10.5-15)
[2016-08-30 07:32] LABS: Comments Flag Yes; White Blood Count 2.9 10^3/ul (3.5-10.8)
[2016-08-30 07:40] LABS: Calcium 8.4 mg/dL (8.6-10.3); EGFR African American 96.9 (>60); EGFR Non-African American 75.4 (>60); Potassium 4.5 mmol/L (3.5-5.0)
[2016-08-30] MEDS: Digoxin TAB* 0.25 MG PO SCH (09:35)
[2016-08-30] MEDS: Docusate CAP* 100 MG PO SCH (09:35)
[2016-08-30] MEDS: Metoprolol Tartrate TAB* 25 MG PO SCH (09:36)
[2016-08-30] MEDS: Diltiazem CD CAP* 180 MG PO SCH (09:36)
[2016-08-30 11:11] VITALS: BP 132/73
--- NOTE | 2016-08-30 12:15 | RAD ---
ROUTINE EXCHANGE OF URINARY ILEOSTOMY CATHETER Indication: Routine exchange. History: Chronic stenosis of urinary right ileostomy. Anaesthesia: None Antibiotic prophylaxis: None (the patient is receiving intravenous vancomycin as an inpatient) Contrast: 10 mL Omnipaque 300 Fluoroscopy time: 22 seconds Procedure note and findings: The risks and benefits of the procedure were carefully explained to the patient and informed consent was obtained. The patient was appropriately positioned on the fluoroscopy table in the supine position and a formal time out was performed. The ileostomy catheter was exposed by removing the external collection bag. The diverting ileostomy tube and percutaneous ostomy was prepped and draped in standard sterile fashion. Sterile precautions including cap, mask, gown and sterile gloves were utilized. Injection of dilute contrast into the existing ileostomy tube demonstrated the pigtail loop to be positioned appropriately in the collecting system. A 0.035" wire was inserted into the tube and advanced into the renal collecting system under fluoroscopic control to preserve access. Under fluoroscopic guidance the existing tube was gently removed over the wire with the wire retaining access into the collecting system. Over the wire a new 10.2 Tajik pigtail catheter was inserted into the collecting system. The wire and inner stiffener were removed under fluoroscopic control leaving the pigtail loop positioned in the collecting system. A small amount of dilute contrast was injected into the new catheter further confirming appropriate position. The new tube was cut to an appropriate length to accommodate positioning in the urinary drainage bag and then a urinary drainage bag was reattached to the patient's abdomen with the tube draining into it. The patient tolerated the procedure well and was observed in the IR holding area prior to discharge. IMPRESSION: 1. Injection of contrast into the existing urinary ileostomy catheter demonstrated appropriate position of the pigtail loop in the collecting system. 2. Over a wire the existing diverting ileostomy catheter was exchanged for a new 10.2 Tajik, 45 length pigtail catheter.
--- NOTE | 2016-08-30 13:08 | DCNOTE ---
Subjective Date of Service: 08/30/16 Interval History: Patient reports " feel good ready to go home" Denies fever or chills. Objective Active Medications: Acetaminophen (Tylenol Tab*) 650 mg PO Q6H PRN PRN Reason: FEVER/PAIN Last Admin: 08/29/16 22:48 Dose: 650 mg Digoxin (Lanoxin Tab*) 0.25 mg PO DAILY [facility] Last Admin: 08/30/16 09:35 Dose: 0.25 mg Diltiazem HCl (Cardizem Cd Cap*) 180 mg PO DAILY [facility] Last Admin: 08/30/16 09:36 Dose: 180 mg Docusate Sodium (Colace Cap*) 200 mg PO BID [facility] Last Admin: 08/30/16 09:35 Dose: 200 mg Doxazosin Mesylate (Cardura Tab*) 2 mg PO QPM [facility] Last Admin: 08/29/16 17:37 Dose: 2 mg Vancomycin HCl 1,250 mg/ (Sodium Chloride) 250 mls @ 166.667 mls/hr IVPB Q12H [facility] Last Admin: 08/30/16 03:53 Dose: 166.667 mls/hr Melatonin (Melatonin (Nf)) 3 mg PO BEDTIME PRN; Protocol PRN Reason: Sleep Last Admin: 08/29/16 22:48 Dose: 3 mg Metoprolol Tartrate (Lopressor Tab*) 25 mg PO BID [facility] Last Admin: 08/30/16 09:36 Dose: 25 mg Omeprazole (Prilosec Cap*) 20 mg PO DAILY@0600 [facility] Last Admin: 08/30/16 05:28 Dose: 20 mg Ondansetron HCl (Zofran Inj*) 4 mg IV Q6H PRN PRN Reason: NAUSEA Pharmacy Consult (Vancomycin Per Pharmacy*) 1 note FOLLOW UP . PRN PRN Reason: PER PROTOCOL Pharmacy Profile Note (Vancomycin Trough Check) 1 note FOLLOW UP ONCE ONE Stop: 08/30/16 15:31 Vital Signs 08/29/16 08/29/16 08/29/16 16:06 19:05 20:00 Temperature 98.2 F Pulse Rate 71 Respiratory 28 16 16 Rate Blood Pressure 141/66 (mmHg) O2 Sat by Pulse 95 Oximetry 08/29/16 08/30/16 08/30/16 23:08 00:22 04:01 Temperature 97.9 F 97.1 F Pulse Rate 75 84 Respiratory 22 22 20 Rate Blood Pressure 127/70 139/69 (mmHg) O2 Sat by Pulse 94 99 Oximetry 08/30/16 08/30/16 08/30/16 07:43 09:55 11:03 Temperature 97.4 F 98.1 F 98.2 F Pulse Rate 83 105 78 Respiratory 17 18 16 Rate Blood Pressure 130/66 135/73 132/73 (mmHg) O2 Sat by Pulse 99 95 98 Oximetry Oxygen Devices in Use Now: None Appearance: obese male sitting up in bed in NAD A+Ox3 Eyes: No Scleral Icterus, PERRLA Ears/Nose/Mouth/Throat: NL Teeth, Lips, Gums, Mucous Membranes Moist Neck: NL Appearance and Movements; NL JVP Respiratory: Symmetrical Chest Expansion and Respiratory Effort, Clear to Auscultation Cardiovascular: NL Sounds; No Murmurs; No JVD, RRR, - - 2-3+ LE edema per pt this is his baseline Abdominal: NL Sounds; No Tenderness; No Distention, - - RL quad nephrostmy tube draining clear yellow drainage Extremities: No Edema, No Clubbing, Cyanosis Skin: No Rash or Ulcers, No Nodules or Sclerosis Neurological: Alert and Oriented x 3, NL Sensation, NL Gait, NL Muscle Strength and Tone Lines/Tubes/Other Access: Clean, Dry and Intact Peripheral IV Nutrition: Taking PO's Result Diagrams: 08/30/16 06:47 08/30/16 06:47 Assess/Plan/Problems-Billing Assessment: 80 yo male with PMH of afib, bladder CA s/p Left nephrectomy, cystectomy and ileal conduit now with ileostomy catheter which is exchanged every six weeks, CKD, hx of frequent UTIs, presents with onset of malaise, generalized weakness, fever x 1 day - Patient Problems (1) Fever Comment: - resolved - secondary to UTI and stent with urine cx now growing MRSA and Providencia Stuartii, sensitive to Doxy. Blood cx negative. - afebrile. - ID recommends doxy x 1 week. - IR exchanged stent today - ok to DC home (2) Elevated troponin Comment: - Troponins 0.06, 0.06, 0.05 - suspect demand ischemia. No CP or EKG changes. - DC tele (3) Bladder cancer Comment: - Hx of left nephrectomy and urostomy (4) Afib Comment: - Hold coumadin for stent exchange tuesday - continue digoxin, cardizem, metoprolol - INR 1.16 (5) Chronic kidney disease Comment: - Acute on chronic Kidney disease. Creatinine is normal today. - appears to be around baseline (6) HTN (hypertension) Comment: - controlled on home meds. (7) ISABEL (obstructive sleep apnea) Comment: - oxygen at night and while sleeping (8) DVT prophylaxis Comment: - rstart coumadin (9) Full code status Status and Disposition: inpatient. Plan for DC to home
[2016-08-30] MEDS ORDERED: Vancomycin Trough Check NOTE FOLLOW UP ONE (15:30)
--- NOTE | 2016-08-31 06:10 | DS ---
DISCHARGE SUMMARY: DATE OF ADMISSION: 08/25/16 DATE OF DISCHARGE: 08/30/16 PROVIDER: Michelle Lema NP ATTENDING PHYSICIAN: Dr. Rose *(report dictated by Michelle Lema NP). PRIMARY CARE PROVIDER: Dr. Madrigal. UROLOGIST: Dr. Enamorado at [facility] in [place], [place]. PRIMARY DIAGNOSES: 1. Fever secondary to urinary tract infection and stent infection, status post stent and nephrostomy catheter exchange. 2. Elevated troponin, suspect demand ischemia with no chest pain or EKG changes. 3. Urine culture with MRSA and Providencia stuartii. 4. Acute kidney injury. SECONDARY DIAGNOSES: 1. Bladder cancer, status post left nephrectomy and nephrostomy tube. 2. Atrial fibrillation, on Coumadin. 3. Chronic kidney disease. 4. Hypertension. 5. Obstructive sleep apnea. DISCHARGE MEDICATIONS: 1. Doxycycline 100 mg p.o. b.i.d. x7 days, new medication. 2. Coumadin 4 mg p.o. daily. 3. Cardura 2 mg p.o. q.p.m. 4. Metoprolol tartrate 25 mg p.o. b.i.d. 5. Digoxin 0.25 mg p.o. daily. 6. Cardizem CD 180 mg p.o. daily. 7. Multivitamin 1 tab p.o. daily. 8. Ferrous sulfate 60 mg p.o. daily. HISTORY OF PRESENT ILLNESS AND HOSPITAL COURSE: Please see history and physical by Dr. Alejandra for full admission details, but in summary, this is an 80-year-old male who presented to the emergency department on 08/25/16 with complaint of 24 hours of malaise, generalized weakness, and fever of 102 at home , which prompted him to come to the emergency department. He denied any cough, congestion, sweats, abdominal pain, nausea, vomiting, diarrhea. The patient has a nephrostomy tube with stent placement and has history of frequent urinary tract infections and had a urine culture on 08/16/16 in anticipation of having his ureteral stent replaced by Dr. Morrison this following week. He was already holding his Coumadin for the anticipated procedure. Per the patient, his exchange had been delayed for a week and in the meantime, he developed a fever. He had an abnormal urinalysis on admission and his urine culture grew MRSA and Providencia stuartii. The patient was initially started on vancomycin and meropenem and then switched to just vancomycin. He has done well throughout his hospitalization. He had one noted fever of 101.5 initially on admission, with the next day of low-grade fevers and has since resolved. The patient has felt at his baseline throughout the weekend just waiting for the stent exchange today. The patient had no leukocytosis on admission, but has noted to be leukopenic with a white blood cell count of 2.4, up to 2.9 today. This is possibly secondary to the meropenem or acute illness. Other labs are unremarkable. He did have acute kidney injury with elevated creatinine of 1.31 on admission, which has resolved with IV fluids. The patient has had negative blood cultures and negative for influenza A and B. The patient is stable for discharge to home. His daughter will be transporting him. DISCHARGE PLAN: 1. I will follow up with Dr. Madrigal on 09/02/16 at 11:05 a.m. 2. Follow up with Dr. Enamorado, [facility] urologist, at previously scheduled appointment. 3. Follow up with Dr. Morrison as previously scheduled for routine exchange, which is approximately every 4 to 6 weeks. 4. Stable for discharge home. TIME SPENT: Approximately 60 minutes was spent on this discharge. MICHELLE LEMA NP CC: Dr. Madrigal; Dr. Enamorado* [id number]/[facility] #: [id number] [facility]
== END 2016-08-30 16:15 | disposition home or self-care (01) | DRG 699 ==
LOC: ED 19:18 → MEDTELE 08-26 00:16 → SSU 08-29 23:00
PROVIDERS: ADMIT Hospitalist; ATTEND Internal Medicine
PROC: 0T25X0Z Change Drainage Device in Kidney, External Approach (ICD-10-PCS; principal; 2016-08-30)
DX: T83.593A Infection and inflammatory reaction due to other urinary stents, initial encounter (principal); G71.0 Muscular dystrophy; N17.9 Acute kidney failure, unspecified; I24.8 Other forms of acute ischemic heart disease; N39.0 Urinary tract infection, site not specified; B95.62 Methicillin resistant Staphylococcus aureus infection as the cause of diseases classified elsewhere; G47.33 Obstructive sleep apnea (adult) (pediatric); K58.9 Irritable bowel syndrome, unspecified; I48.0 Paroxysmal atrial fibrillation; N18.9 Chronic kidney disease, unspecified; B96.89 Other specified bacterial agents as the cause of diseases classified elsewhere; Y83.8 Other surgical procedures as the cause of abnormal reaction of the patient, or of later complication, without mention of misadventure at the time of the procedure; J98.4 Other disorders of lung; I12.9 Hypertensive chronic kidney disease with stage 1 through stage 4 chronic kidney disease, or unspecified chronic kidney disease; D72.819 Decreased white blood cell count, unspecified; Z86.718 Personal history of other venous thrombosis and embolism; Z85.46 Personal history of malignant neoplasm of prostate; Z85.51 Personal history of malignant neoplasm of bladder; Z88.1 Allergy status to other antibiotic agents; Z88.8 Allergy status to other drugs, medicaments and biological substances; Z87.440 Personal history of urinary (tract) infections; Z98.42 Cataract extraction status, left eye; Z98.41 Cataract extraction status, right eye; Z82.3 Family history of stroke; Z79.01 Long term (current) use of anticoagulants; Z90.5 Acquired absence of kidney; Z93.6 Other artificial openings of urinary tract status
CPT/HCPCS: 36415; 50435; 71020; 76775; 80048; 80053; 80202; 81003; 81015; 83605; 83735; 84443; 84484; 85025; 85060; 85610; 87040; 87077; 87086; 87186; 87502; 93005; 94760; A9270-GY; C1729; J1650; J2185; J3370; Q9967

== ENCOUNTER 2016-11-15 14:11 | Observation (INO) | payer MEDICARE ==
[2016-11-15] MEDS ORDERED: Morphine INJ* 4 MG/ML 1 ML SYRINGE IV ONE (15:30)
[2016-11-15] MEDS ORDERED: NS 0.9% 1000 ML* 1,000 ML IV ONE (15:30)
[2016-11-15] MEDS ORDERED: Ondansetron INJ* 2 MG/ML VIAL IV ONE (15:30)
[2016-11-15 17:08] LABS: Hematocrit 37 % (42-52); Hemoglobin 12.5 g/dl (14.0-18.0); Mean Corpuscular HGB Conc 34 g/dl (31-36); Mean Corpuscular Hemoglobin 31 pg (27-31); Mean Corpuscular Volume 91 fL (80-94); Mean Platelet Volume 10 um3 (7.4-10.4); Red Blood Count 4.09 10^6/ul (4.0-5.4); Red Cell Distribution Width 16 % (10.5-15); White Blood Count 9.3 10^3/ul (3.5-10.8)
[2016-11-15 17:23] LABS: Albumin 3.4 g/dL (3.2-5.2); BUN/Creatinine Ratio 17.8 (8-20); C Reactive Protein 3.13 mg/L (< 5.00); EGFR African American 56.9 (>60); EGFR Non-African American 44.2 (>60); Globulin 2.1 g/dL (2-4); Total Bilirubin 0.4 mg/dL (0.2-1.0); Total Protein 5.5 g/dL (6.4-8.9)
[2016-11-15 17:27] LABS: Potassium 4.4 mmol/L (3.5-5.0)
[2016-11-15] MEDS ORDERED: [UNRECOGNIZED DRUG - OTHER] IVPB ONE (17:32)
[2016-11-15] MEDS ORDERED: NS IVPB ONE (17:32)
[2016-11-15] MEDS ORDERED: TAZOB IVPB ONE (17:32)
[2016-11-15 17:53] LABS: Urine Bacteria Absent (Absent); Urine Bilirubin Negative (Negative); Urine Glucose Negative (Negative); Urine Nitrite Negative (Negative)
[2016-11-15] MEDS ORDERED: PREMIX* 0 ML ONE (18:23)
--- NOTE | 2016-11-15 18:27 | ED ---
I, Oh,Sohannah, scribed for Kera Crump MD on 11/15/16 at 1537 . GI/ HPI - HPI Summary HPI Summary: This 81 y/o male presents to ED for right flank pain since noon today. Negative fever. PMHx is significant for bladder CA s/p left nephrectomy and urostomy in place on RLQ. Daughter present at bedside reports that urostomy tube was last changed on 11/04/[address] Morrison, during which the bag and tube were noted with crystals. Other PMHx includes UTI with febrile episodes, and HTN. FHx is positive for HTN. Primary care involves Dr. Madrigal. Nonsmoker and nondrinker. - History of Current Complaint Chief Complaint: EDFlankPain Time Seen by Provider: 11/15/16 15:15 Stated Complaint: BACK/KIDNEY PAIN Hx Obtained From: Patient, Medical Records Onset/Duration: Started Hours Ago, Atraumatic, Still Present Pain Intensity: 6 Location of Pain: Flank - right Pain Characteristics: Dull Associated Signs and Symptoms: Negative: Fever - Additional Pertinent History Primary Care Physician: [id number] - Allergy/Home Medications Allergies/Adverse Reactions: Allergies Allergy/AdvReac Type Severity Reaction Status Date / Time Cephalexin [From Keflex] Allergy Rash And Verified 11/15/16 14:13 Itching Sulfamethoxazole Allergy Swelling Verified 11/15/16 14:13 w/Trimethoprim Of [From Bactrim] Face,Lips,& Throat Atorvastatin [From Lipitor] AdvReac Muscle Ache Verified 11/15/16 14:13 Ezetimibe [From Zetia] AdvReac Muscle Ache Verified 11/15/16 14:13 Gemfibrozil [From Lopid] AdvReac Muscle Ache Verified 11/15/16 14:13 PMH/Surg Hx/FS Hx/Imm Hx Endocrine/Hematology History: Reports: Hx Anticoagulant Therapy Denies: Hx Diabetes Comment Only: Hx Thyroid Disease - family hx Cardiovascular History: Reports: Hx Angina, Hx Deep Vein Thrombosis, Hx Syncope , Other Cardiovascular Problems/Disorders - A-FIB, PATIENT STATES BEING CARED FOR BY DR. CHAWLA Denies: Hx Hypertension Respiratory History: Reports: Hx Sleep Apnea, Other Respiratory Problems/ Disorders - SLEEP APNEA Denies: Hx Chronic Obstructive Pulmonary Disease (COPD) GI History: Reports: Hx Irritable Bowel - r/t colectomy, Other GI Disorders - CONSTIPATION History: Reports: Hx Renal Disease - NEOPLASM OF THE BLADDER, Other Problems/Disorders - REMOVAL OF BLADDER DUE TO CANCER Denies: Hx Dialysis Musculoskeletal History: Reports: Other Musculoskeletal History - HX OF FALL, RESULTING IN BACK INJURY, PATIENT STATES Denies: Hx Back Problems Sensory History: Reports: Hx Cataracts, Hx Contacts or Glasses, Hx Hearing Problem Denies: Hx Hearing Aid Opthamlomology History: Reports: Hx Cataracts, Hx Contacts or Glasses Neurological History: Denies: Hx Dementia, Hx Seizures - Cancer History Cancer Type, Location and Year: bladder/prostate cancer 2009 Hx Chemotherapy: No Hx Radiation Therapy: No - Surgical History Surgery Procedure, Year, and Place: 2009-BLADDER REMOVAL. 2011-KIDNEY REMOVAL. 4-5 YRS AGO- RIGHT EYE CATARACT SURGERY Hx Anesthesia Reactions: No Infectious Disease History: Yes Infectious Disease History: Reports: Hx of Known/Suspected MRSA Denies: Hx Clostridium Difficile, Hx Hepatitis, Hx Human Immunodeficiency Virus (HIV), Traveled Outside the [place] in Last 30 Days - Family History Known Family History: Positive: Hypertension, Other - Negative: malignant hyperthermia, anesthesia reaction - Social History Alcohol Use: None Hx Substance Use: No Substance Use Type: Reports: None Hx Tobacco Use: No Smoking Status (MU): Never Smoked Tobacco Review of Systems Negative: Fever Positive: Other - Hard of Hearing Positive: Other - nephrostomy in place Positive: flank pain - right. Negative: dysuria All Other Systems Reviewed And Are Negative: Yes Physical Exam Triage Information Reviewed: Yes Vital Signs On Initial Exam: Initial Vitals Temp Pulse Resp BP Pulse Ox 98.1 F 111 20 142/72 98 11/15/16 14:13 11/15/16 14:13 11/15/16 14:13 11/15/16 14:13 11/15/16 14:13 Vital Signs Reviewed: Yes Appearance: Positive: Well-Appearing, No Pain Distress Skin: Positive: Warm, Skin Color Reflects Adequate Perfusion Eyes: Positive: EOMI, BEKAH Neck: Positive: Supple, Nontender Respiratory/Lung Sounds: Positive: Clear to Auscultation, Breath Sounds Present Cardiovascular: Positive: RRR, Pulses are Symmetrical in both Upper and Lower Extremities Abdomen Description: Positive: Nontender, Soft, Other: - urostomy in place on RLQ Musculoskeletal: Positive: Edema Left - 2+, Edema Right - 2+ Neurological: Positive: Sensory/Motor Intact, Alert, Oriented to Person Place, Time Psychiatric: Positive: Affect/Mood Appropriate AVPU Assessment: Alert Procedures - Procedure Summary Procedure Summary: Urostomy tube replacement performed by Dr. Crump on 1639 PM Diagnostics - Vital Signs Vital Signs Temp Pulse Resp BP Pulse Ox 11/15/16 14:13 98.1 F 111 20 142/72 98 - Laboratory Lab Results: Lab Results 11/15/16 11/15/16 11/15/16 Range/Units 16:55 16:55 16:55 WBC 9.3 (3.5-10.8) 10^3/ul RBC 4.09 (4.0-5.4) 10^6/ul Hgb 12.5 L (14.0-18.0) g/dl Hct 37 L (42-52) % MCV 91 (80-94) fL MCH 31 (27-31) pg MCHC 34 (31-36) g/dl RDW 16 H (10.5-15) % Plt Count 157 (150-450) 10^3/ul MPV 10 (7.4-10.4) um3 Neut % (Auto) 88.2 H (38-83) % Lymph % (Auto) 2.2 L (25-47) % [place] % (Auto) 8.8 (1-9) % Eos % (Auto) 0.5 (0-6) % Baso % (Auto) 0.3 (0-2) % Absolute Neuts (auto) 8.2 H (1.5-7.7) 10^3/ul Absolute Lymphs (auto) 0.2 L (1.0-4.8) 10^3/ul Absolute Monos (auto) 0.8 (0-0.8) 10^3/ul Absolute Eos (auto) 0 (0-0.6) 10^3/ul Absolute Basos (auto) 0 (0-0.2) 10^3/ul Absolute Nucleated RBC 0 10^3/ul Nucleated RBC % 0 INR (Anticoag Therapy) (0.89-1.11) Sodium 136 (133-145) mmol/L Potassium 4.4 (3.5-5.0) mmol/L Chloride 102 (101-111) mmol/L Carbon Dioxide 29 (22-32) mmol/L Anion Gap 5 (2-11) mmol/L BUN 27 H (6-24) mg/dL Creatinine 1.52 H (0.67-1.17) mg/dL Est GFR ( Amer) 56.9 (>60) Est GFR (Non-Af Amer) 44.2 (>60) BUN/Creatinine Ratio 17.8 (8-20) Glucose 166 H (70-100) mg/dL Lactic Acid 1.8 (0.5-2.0) mmol/L Calcium 9.0 (8.6-10.3) mg/dL Total Bilirubin 0.40 (0.2-1.0) mg/dL AST 22 (13-39) U/L ALT 24 (7-52) U/L Alkaline Phosphatase 50 (34-104) U/L C-Reactive Protein 3.13 (< 5.00) mg/L Total Protein 5.5 L (6.4-8.9) g/dL Albumin 3.4 (3.2-5.2) g/dL Globulin 2.1 (2-4) g/dL Albumin/Globulin Ratio 1.6 (1-3) Lipase 28 (11.0-82.0) U/L Urine Color Urine Appearance Urine pH (5-9) Ur Specific [place] (1.010-1.030) Urine Protein (Negative) Urine Ketones (Negative) Urine Blood (Negative) Urine Nitrate (Negative) Urine Bilirubin (Negative) Urine Urobilinogen (Negative) Ur Leukocyte Esterase (Negative) Urine WBC (Auto) (Absent) Urine RBC (Auto) (Absent) Urine Bacteria (Absent) Urine Glucose (Negative) 11/15/16 11/15/16 Range/Units 16:55 17:30 WBC (3.5-10.8) 10^3/ul RBC (4.0-5.4) 10^6/ul Hgb (14.0-18.0) g/dl Hct (42-52) % MCV (80-94) fL MCH (27-31) pg MCHC (31-36) g/dl RDW (10.5-15) % Plt Count (150-450) 10^3/ul MPV (7.4-10.4) um3 Neut % (Auto) (38-83) % Lymph % (Auto) (25-47) % [place] % (Auto) (1-9) % Eos % (Auto) (0-6) % Baso % (Auto) (0-2) % Absolute Neuts (auto) (1.5-7.7) 10^3/ul Absolute Lymphs (auto) (1.0-4.8) 10^3/ul Absolute Monos (auto) (0-0.8) 10^3/ul Absolute Eos (auto) (0-0.6) 10^3/ul Absolute Basos (auto) (0-0.2) 10^3/ul Absolute Nucleated RBC 10^3/ul Nucleated RBC % INR (Anticoag Therapy) 1.56 H (0.89-1.11) Sodium (133-145) mmol/L Potassium (3.5-5.0) mmol/L Chloride (101-111) mmol/L Carbon Dioxide (22-32) mmol/L Anion Gap (2-11) mmol/L BUN (6-24) mg/dL Creatinine (0.67-1.17) mg/dL Est GFR ( Amer) (>60) Est GFR (Non-Af Amer) (>60) BUN/Creatinine Ratio (8-20) Glucose (70-100) mg/dL Lactic Acid (0.5-2.0) mmol/L Calcium (8.6-10.3) mg/dL Total Bilirubin (0.2-1.0) mg/dL AST (13-39) U/L ALT (7-52) U/L Alkaline Phosphatase (34-104) U/L C-Reactive Protein (< 5.00) mg/L Total Protein (6.4-8.9) g/dL Albumin (3.2-5.2) g/dL Globulin (2-4) g/dL Albumin/Globulin Ratio (1-3) Lipase (11.0-82.0) U/L Urine Color [place] Urine Appearance Turbid Urine pH 7.0 (5-9) Ur Specific [place] 1.012 (1.010-1.030) Urine Protein 1+(30 mg/dl) H (Negative) Urine Ketones Negative (Negative) Urine Blood 1+ H (Negative) Urine Nitrate Negative (Negative) Urine Bilirubin Negative (Negative) Urine Urobilinogen Negative (Negative) Ur Leukocyte Esterase 2+ H (Negative) Urine WBC (Auto) Trace(0-5/hpf) (Absent) Urine RBC (Auto) Trace(0-2/hpf) (Absent) Urine Bacteria Absent (Absent) Urine Glucose Negative (Negative) Result Diagrams: 11/15/16 16:55 11/15/16 16:55 Lab Statement: Any lab studies that have been ordered have been reviewed, and results considered in the medical decision making process. Re-Evaluation - Re-Evaluation First Eval Re-Evaluation Time: 16:26 Comment: MD in room to re-evaluate pt and update pt on urology consultation. Daughter present at bedside reports that he is currently on coumadin. Plan of care involving possible transfer is discussed with daughter. Second Eval Re-Evaluation Time: 17:28 Comment: MD in room to discuss plan of care. Given that Pt is still making urine , doesn't have any WBC, and pain is controllable with pain medication, plan of care involving abx treatment is recommended by Dr. Cervantes. Daughter's concerns regarding decreased urine making is addressed and answered. R/b/a admission is discussed with pt. GIGU Course/Dx - Course Course Of Treatment: 30 mins of critical care time talking with multiple providers. This 81 yo male with one kidney on the right with a nephrostomy tube placed by Dr. Morrison comes in with right flankpain typical of a blocked tube. Of note, the pt is on coumadin for afib and his inr is 1.6. His urostomy bag was taken down and under sterile condtions the tube was checked with no urine being obtained and the tube was not able to be flushed but several cc's of urine were seen extravasating from stoma continuously as procedure was being done. His labs look good, but he is having pain that he has been given morphine for. The case was discussed several times with Dr. Cervantes and given that there is urine with only one kidney then he is not fully obstructed, his labs also look quite good. Dr. Morrison is not instructional coach tonight but he will be in tomorrow and the case was presented to Dr. Vargas for admission. - Diagnoses Provider Diagnoses: Obstructed nephrostomy tube - Physician Notifications Discussed Care Of Patient With: Dr. Cervantes (Urologist) at 1601 PM. Radiology at 1615 PM -- consulted regarding fitting around the urostomy tube. Dr. Cervantes (Urologist) at 1720 PM -- lab results shared. Discharge - Discharge Plan Condition: Stable Disposition: ADMITTED TO [facility] documentation as recorded by the Mohit huynh Soohyun accurately reflects the service I personally performed and the decisions made by me, Kera Crump MD.
[2016-11-15] MEDS ORDERED: Morphine INJ* 2 MG/ML 1 ML SYRINGE IV PRN (20:33)
[2016-11-15] MEDS ORDERED: Diltiazem CD CAP* 180 MG PO SCH (21:00)
[2016-11-15] MEDS: Metoprolol Succinate XL TAB* 25 MG PO SCH (21:38)
[2016-11-15] MEDS ORDERED: Doxazosin TAB* 2 MG PO SCH ×2 (21:49→23:55)
--- NOTE | 2016-11-15 22:35 | HP ---
HISTORY AND PHYSICAL: ADDENDUM: Mr. Love is an 81-year-old male with history of status post kidney resection due to advanc ed bladder cancer, who right now has a nephrostomy tube placed in the remaining kidney. The patient presented today complaining of decreased urine output from the nephrostomy. It appears that the pa tient has leaking urine around the nephrostomy tube. Dr. Cervantes is involved from Urology [facility]. The patient is going be admitted to the hospital for further treatment and most likely Interven tional Radiology replacement of the nephrostomy tube in the morning. For further details of assessm ent and plan, please see the physical dictated by Brea Condon on 11/15/16, with which I agree. [id number]/[facility] #: [id number]
--- NOTE | 2016-11-15 22:52 | HP ---
HOSPITAL MEDICINE HISTORY AND PHYSICAL: DATE OF ADMISSION: 11/15/16 PRIMARY CARE PHYSICIAN: Jimbo Madrigal MD RN ACUTE: Dr. Enamorado in [place]. ATTENDING PHYSICIAN: Bhavana Vargas MD* (dictation provided by Brea Condon NP) CHIEF COMPLAINT: Right-sided flank pain and decreased nephrostomy output. HISTORY OF PRESENT ILLNESS: Mr. Love is an 81-year-old male with a past medical history of bladder cancer, requiring cystectomy and ultimately nephrectomy on the right with placement of a right-sided nephrostomy tube who presents today to the hospital with concern for right-sided flank pain and decreased urine output from the nephrostomy tube. Mr. Love states he was in normal state of health when today he developed a sudden onset of pain that is primarily in his back. It does also radiate into the front of his abdomen. He also noted that he was having decreased urine output from his nephrostomy tube, although it continued to function. He also noted some drainage around the tube. The patient was admitted to our hospital on 11/05/16 for nephrostomy tube change with Dr. Morrison. Mr. Love denies any other complaint. He has had no chest pain , no cough, and no shortness of breath. He has been eating and drinking normally. He has had no nausea. His bowel movements have been normal. He has had no fever. In the emergency room, Mr. Love was confirmed to have a functioning urostomy tube , but it did have drainage around the nephrostomy and decreased output per the patient's recollection. He has acute kidney injury with a BUN of 27 and a creatinine of 1.52. He has had no leukocytosis or fever. His urine has 2+ leukocyte esterase. Mr. Love's case was discussed with Dr. Cervantes who knows the patient, but does not follow him directly. He indicated that no further imaging would be indicated, but the patient should be admitted for change of nephrostomy tube. PAST MEDICAL HISTORY: 1. History of bladder cancer with resection in 2009. 2. History of nephrectomy for recurrent cancer in 2011. 3. History of paroxysmal atrial fibrillation, on chronic Coumadin. 4. Hypertension. 5. Muscular dystrophy. 6. History of restrictive lung disease. 7. History of obstructive sleep apnea, on home O2. 8. Postop arterial embolism, status post thrombectomy and fasciotomy. MEDICATIONS: 1. Warfarin 6 mg alternating with 7 mg every other day. 2. Digoxin 0.25 mg p.o. daily. 3. Diltiazem 180 mg p.o. daily. 4. Doxazosin 2 mg p.o. q.p.m. 5. Metoprolol succinate 25 mg p.o. b.i.d. ALLERGIES: CEPHALEXIN, SULFAMETHOXAZOLE WITH TRIMETHOPRIM, ATORVASTATIN, ZETIA , and GEMFIBROZIL. FAMILY HISTORY: The patient reports his parents both lived to advanced age with mom dying at 102 and dad dying at 93. SOCIAL HISTORY: No report of alcohol, tobacco, or drug use. The patient lives with his and states his daughter, Mar, would be the health care proxy. REVIEW OF SYSTEMS: A 14-point review of systems was completed with Mr. Love and all those mentioned above were negative. PHYSICAL EXAMINATION GENERAL: Mr. Love is sitting in the bed. He is in no acute distress. VITAL SIGNS: Blood pressure 142/72, heart rate 111, temperature 98.1, respiratory rate 20, and O2 saturation 98% on room air. LUNGS: Clear to auscultation bilaterally with no accessory muscle use and good aeration. HEART: S1, S2. No murmur, rub, or gallop and regular. ABDOMEN: Soft, nontender with bowel sounds positive x4. EXTREMITIES: No cyanosis or edema. NEUROLOGIC: He is alert. He is oriented x3. He moves all extremities equally. There is no facial asymmetry or focal weakness. Extraocular movements are intact. SKIN: Intact. DIAGNOSTIC STUDIES/LAB DATA: WBC 9.3, hemoglobin 12.5, hematocrit 37, and platelet count 157. INR 1.56. Sodium 136, potassium 4.4, chloride 102, serum bicarbonate 29, BUN 27, creatinine 1.52, and glucose 166. CRP 3.13. Urine shows 2+ leukocyte esterase. ASSESSMENT: Mr. Love is an 81-year-old male with a past medical history of bladder cancer, status post cystectomy and nephrectomy on the right with nephrostomy tube who presents today to the hospital with concern for decreased urine output from the nephrostomy and right-sided flank pain. He has been found to have acute kidney injury and the plans are for observation in the hospital for the followin. Acute kidney injury with suspected obstructed nephrostomy tube: Again, the case has been reviewed with Dr. Cervantes. He states that as long as the patient shows no evidence of sepsis (which he does not) that he is stable to be monitored overnight and then to go to Interventional Radiology for exchange of nephrostomy tube tomorrow with Dr. Morrison and we have verified that Dr. Morrison is on tomorrow and have ordered that exchange procedure. The patient does have acute kidney injury. We will be providing him with gentle fluids overnight and rechecking his labs in the morning. 2. Paroxysmal atrial fibrillation: Plan to hold warfarin in the setting of a need for procedure tomorrow. His INR is only 1.56. Recheck in the a.m. Plan to continue digoxin, diltiazem, and metoprolol. 3. DVT prophylaxis with SCDs until we can resume warfarin. 4. Code status: DNR. TIME SPENT: Approximately 60 minutes was spent in the admission of this patient , more than half of the time was spent with the patient at the bedside reviewing the events leading up to this hospitalization, performing the physical examination, and reviewing my plan of care. BREA CONDON NP ADDENDUM TO HISTORY AND PHYSICAL: Mr. Love is an 81-year-old male with history of status post kidney resection due to advanced bladder cancer, who right now has a nephrostomy tube placed in the remaining kidney. The patient presented today complaining of decreased urine output from the nephrostomy. It appears that the patient has leaking urine around the nephrostomy tube. Dr. Cervantes is involved from Urology standpoint. The patient is going be admitted to the hospital for further treatment and most likely Interventional Radiology replacement of the nephrostomy tube in the morning. For further details of assessment and plan, please see the physical dictated by Brea Condon on 11/15/16, with which I agree. BHAVANA VARGAS MD CC: Dr. Madrigal* [id number]/[facility] #: [id number]/[facility] #: [id number] [place]
[2016-11-16] MEDS: Acetaminophen TAB* 325 MG PO PRN ×2 (01:02→13:33)
[2016-11-16 07:03] LABS: Hematocrit 34 % (42-52); Hemoglobin 11.3 g/dl (14.0-18.0); Mean Corpuscular HGB Conc 33 g/dl (31-36); Mean Corpuscular Hemoglobin 30 pg (27-31); Mean Corpuscular Volume 92 fL (80-94); Mean Platelet Volume 10 um3 (7.4-10.4); Red Blood Count 3.75 10^6/ul (4.0-5.4); Red Cell Distribution Width 15 % (10.5-15); White Blood Count 8.1 10^3/ul (3.5-10.8)
[2016-11-16 07:21] LABS: Calcium 8.3 mg/dL (8.6-10.3); EGFR African American 48.4 (>60); EGFR Non-African American 37.6 (>60); Potassium 4.7 mmol/L (3.5-5.0)
[2016-11-16] MEDS ORDERED: Digoxin TAB* 0.25 MG PO SCH (09:00)
[2016-11-16] MEDS ORDERED: Diltiazem CD CAP* 180 MG PO SCH (09:00)
[2016-11-16] MEDS: Metoprolol Succinate XL TAB* 25 MG PO SCH (09:11)
--- NOTE | 2016-11-16 12:31 | PN ---
Subjective Date of Service: 11/16/16 Interval History: Mr. Love reports minimally right sided flank pain and decreased urine output from his urostomy tube. He denies any visible blood in his urine. He further denies chest pain, SOB, or nausea. Objective Active Medications: Acetaminophen (Tylenol Tab*) 650 mg PO Q6H PRN Digoxin (Lanoxin Tab*) 0.25 mg PO DAILY [facility] Diltiazem HCl (Cardizem Cd Cap*) 180 mg PO BEDTIME PAUL Doxazosin Mesylate (Cardura Tab*) 2 mg PO 2100 PAUL Metoprolol Succinate (Toprol Xl Tab*) 25 mg PO BID PAUL Morphine Sulfate (Morphine Inj (Syringe)*) 2 mg IV Q4H PRN Vital Signs 11/15/16 11/15/16 11/15/16 18:30 19:00 19:30 Temperature Pulse Rate Respiratory 30 24 27 Rate Blood Pressure 140/84 135/81 140/74 (mmHg) O2 Sat by Pulse Oximetry 11/15/16 11/15/16 11/15/16 20:01 20:21 23:25 Temperature 98.7 F 98.7 F 100.0 F Pulse Rate 110 110 93 Respiratory 28 28 16 Rate Blood Pressure 148/82 148/74 (mmHg) O2 Sat by Pulse 95 97 97 Oximetry 11/16/16 11/16/16 11/16/16 00:00 00:33 02:26 Temperature Pulse Rate Respiratory 22 Rate Blood Pressure (mmHg) O2 Sat by Pulse 97 97 Oximetry 11/16/16 11/16/16 11/16/16 03:47 07:57 09:05 Temperature 98.7 F 99.0 F Pulse Rate 83 92 82 Respiratory 16 16 Rate Blood Pressure 108/51 113/51 (mmHg) O2 Sat by Pulse 98 99 Oximetry Oxygen Devices in Use Now: None Appearance: Male sitting up in bed in NAD Eyes: No Scleral Icterus Ears/Nose/Mouth/Throat: Mucous Membranes Moist Neck: Trachea Midline Respiratory: Symmetrical Chest Expansion and Respiratory Effort, Clear to Auscultation Cardiovascular: NL Sounds; No Murmurs; No JVD, No Edema Abdominal: NL Sounds; No Tenderness; No Distention, - - ileal conduit stoma pink and beefy, clear yellow urine in urostomy bag Lymphatic: No Cervical Adenopathy Extremities: No Edema Nutrition: Taking PO's Result Diagrams: 11/16/16 06:17 05/30/17 06:18 Additional Lab and Data: Lab Results 11/15/16 11/15/16 11/15/16 Range/Units 16:55 16:55 16:55 WBC 9.3 (3.5-10.8) 10^3/ul RBC 4.09 (4.0-5.4) 10^6/ul Hgb 12.5 L (14.0-18.0) g/dl Hct 37 L (42-52) % MCV 91 (80-94) fL MCH 31 (27-31) pg MCHC 34 (31-36) g/dl RDW 16 H (10.5-15) % Plt Count 157 (150-450) 10^3/ul MPV 10 (7.4-10.4) um3 Neut % (Auto) 88.2 H (38-83) % Lymph % (Auto) 2.2 L (25-47) % [place] % (Auto) 8.8 (1-9) % Eos % (Auto) 0.5 (0-6) % Baso % (Auto) 0.3 (0-2) % Absolute Neuts (auto) 8.2 H (1.5-7.7) 10^3/ul Absolute Lymphs (auto) 0.2 L (1.0-4.8) 10^3/ul Absolute Monos (auto) 0.8 (0-0.8) 10^3/ul Absolute Eos (auto) 0 (0-0.6) 10^3/ul Absolute Basos (auto) 0 (0-0.2) 10^3/ul Absolute Nucleated RBC 0 10^3/ul Nucleated RBC % 0 INR (Anticoag Therapy) (0.89-1.11) Sodium 136 (133-145) mmol/L Potassium 4.4 (3.5-5.0) mmol/L Chloride 102 (101-111) mmol/L Carbon Dioxide 29 (22-32) mmol/L Anion Gap 5 (2-11) mmol/L BUN 27 H (6-24) mg/dL Creatinine 1.52 H (0.67-1.17) mg/dL Est GFR ( Amer) 56.9 (>60) Est GFR (Non-Af Amer) 44.2 (>60) BUN/Creatinine Ratio 17.8 (8-20) Glucose 166 H (70-100) mg/dL Lactic Acid 1.8 (0.5-2.0) mmol/L Calcium 9.0 (8.6-10.3) mg/dL Total Bilirubin 0.40 (0.2-1.0) mg/dL AST 22 (13-39) U/L ALT 24 (7-52) U/L Alkaline Phosphatase 50 (34-104) U/L C-Reactive Protein 3.13 (< 5.00) mg/L Total Protein 5.5 L (6.4-8.9) g/dL Albumin 3.4 (3.2-5.2) g/dL Globulin 2.1 (2-4) g/dL Albumin/Globulin Ratio 1.6 (1-3) Lipase 28 (11.0-82.0) U/L Urine Color Urine Appearance Urine pH (5-9) Ur Specific [place] (1.010-1.030) Urine Protein (Negative) Urine Ketones (Negative) Urine Blood (Negative) Urine Nitrate (Negative) Urine Bilirubin (Negative) Urine Urobilinogen (Negative) Ur Leukocyte Esterase (Negative) Urine WBC (Auto) (Absent) Urine RBC (Auto) (Absent) Urine Bacteria (Absent) Urine Glucose (Negative) 11/15/16 11/15/16 Range/Units 16:55 17:30 WBC (3.5-10.8) 10^3/ul RBC (4.0-5.4) 10^6/ul Hgb (14.0-18.0) g/dl Hct (42-52) % MCV (80-94) fL MCH (27-31) pg MCHC (31-36) g/dl RDW (10.5-15) % Plt Count (150-450) 10^3/ul MPV (7.4-10.4) um3 Neut % (Auto) (38-83) % Lymph % (Auto) (25-47) % [place] % (Auto) (1-9) % Eos % (Auto) (0-6) % Baso % (Auto) (0-2) % Absolute Neuts (auto) (1.5-7.7) 10^3/ul Absolute Lymphs (auto) (1.0-4.8) 10^3/ul Absolute Monos (auto) (0-0.8) 10^3/ul Absolute Eos (auto) (0-0.6) 10^3/ul Absolute Basos (auto) (0-0.2) 10^3/ul Absolute Nucleated RBC 10^3/ul Nucleated RBC % INR (Anticoag Therapy) 1.56 H (0.89-1.11) Sodium (133-145) mmol/L Potassium (3.5-5.0) mmol/L Chloride (101-111) mmol/L Carbon Dioxide (22-32) mmol/L Anion Gap (2-11) mmol/L BUN (6-24) mg/dL Creatinine (0.67-1.17) mg/dL Est GFR ( Amer) (>60) Est GFR (Non-Af Amer) (>60) BUN/Creatinine Ratio (8-20) Glucose (70-100) mg/dL Lactic Acid (0.5-2.0) mmol/L Calcium (8.6-10.3) mg/dL Total Bilirubin (0.2-1.0) mg/dL AST (13-39) U/L ALT (7-52) U/L Alkaline Phosphatase (34-104) U/L C-Reactive Protein (< 5.00) mg/L Total Protein (6.4-8.9) g/dL Albumin (3.2-5.2) g/dL Globulin (2-4) g/dL Albumin/Globulin Ratio (1-3) Lipase (11.0-82.0) U/L Urine Color Danette Urine Appearance Turbid Urine pH 7.0 (5-9) Ur Specific [place] 1.012 (1.010-1.030) Urine Protein 1+(30 mg/dl) H (Negative) Urine Ketones Negative (Negative) Urine Blood 1+ H (Negative) Urine Nitrate Negative (Negative) Urine Bilirubin Negative (Negative) Urine Urobilinogen Negative (Negative) Ur Leukocyte Esterase 2+ H (Negative) Urine WBC (Auto) Trace(0-5/hpf) (Absent) Urine RBC (Auto) Trace(0-2/hpf) (Absent) Urine Bacteria Absent (Absent) Urine Glucose Negative (Negative) Microbiology and Other Data: Microbiology 11/16/16 00:05 Nasal Screen MRSA (PCR)(PARTHA) - Final Nasal Mrsa Positive Assess/Plan/Problems-Billing Assessment: Mr. Love is an 81 yo male with a PMH of bladder cancer with cystectomy and recurrent metastases requiring right nephrectomy and placement of ileal conduit as well as muscular dystrophy and hypertension who was admitted on 11/15/16 with a partially obstructed urostomy tube and acute kidney injury. - Patient Problems (1) Acute kidney injury Comment: Creatinine up to 1.75 today. Continue efforts to have catheter exchanged to relieve partial obstruction, see below. (2) Obstructed urostomy catheter Comment: IR unable to perform catheter exchange here due to degree of stricture. Plan for transfer to [facility], Dr. Enamorado (urologist who performed original surgery) accepting. No evidence of sepsis, UA positive with staph aureus. Reviewed case with ID who suspected this was likely colonization as patient was asymptomatic, no antibiotics indicated. (3) Afib Comment: Hold coumadin for stent exchange. Continue digoxin, cardizem, metoprolol. INR 1.66 (4) DNR (do not resuscitate) Comment: MOLST completed. (5) DVT prophylaxis Comment: SCDs. Status and Disposition: Transfer to [facility].
[2016-11-16] MEDS ORDERED: oxyCODONE/Acetamin 5/325 MG* TAB PO PRN (14:26)
[2016-11-16] MEDS ORDERED: Piperac/Tazob 3.375 gm in NS* 3.375 GM in PREMIX* 0 ML IVPB ONE ×2 (15:00)
--- NOTE | 2016-11-16 15:54 | TRS ---
TRANSFER SUMMARY: DATE OF ADMISSION: 11/15/16 DATE OF TRANSFER: 11/16/16 PRIMARY CARE PHYSICIAN: Dr. Madrigal ATTENDING PHYSICIAN: Dr. Bhavana Vargas* (dictation provided by Gabriella Condon NP) . PRIMARY DIAGNOSES: 1. Obstructed urostomy tube. 2. Acute kidney injury with creatinine 1.7. SECONDARY DIAGNOSES: 1. History of bladder cancer with resection in 2009. 2. History of nephrectomy with ileal conduit placement for return cancer in 2011. 3. History of paroxysmal atrial fibrillation on chronic Coumadin. 4. Hypertension. 5. Muscular dystrophy. 6. History of restrictive lung disease. 7. History of obstructive sleep apnea on home O2. 8. History of a postop arterial embolism status post thrombectomy and fasciotomy. MEDICATIONS: On an outpatient basis are as follows: 1. Warfarin 6 mg alternating with7 mg every other day (on hold since arrival). 2. Digoxin 0.25 mg daily. 3. Diltiazem 180 mg p.o. daily. 4. Doxazosin 2 mg p.o. q.p.m. 5. Metoprolol succinate 25 mg p.o. b.i.d. HOSPITAL COURSE: Mr. Love is an 81-year-old male with a past medical history of bladder cancer with left kidney nephrectomy for recurrent metastases and an ileal conduit with nephrostomy tube, who presented to the hospital on 11/15/16 with concern for decreased urine output and right-sided pain. Mr. Love reported that appeared that his urostomy tube was occluded. Attempts were made in the emergency room to flush the tube unsuccessfully and plans were made for the patient to be admitted to the hospital for nephrostomy tube exchange. Patient had no evidence of sepsis. His white blood cell count was normal, he had no fever. His urinalysis had 2+ leukocyte esterase and is growing Staphylococcus. Patient has been given Zosyn while inpatient. Unfortunately, we are unable to perform the nephrostomy tube exchange here at our hospital. Patient had been seen by Dr. Morrison from interventional radiology on numerous occasions in the past with past tube exchange happening on . Per Dr. Morrison, he had a very difficult time exchanging the catheter and he does not feel comfortable attempting exchange here again without patient's surgeon available. Discussions have been undertaken with Dr. Enamorado, who is patient's urologist at [facility], who is accepting the patient in transfer for urology evaluation and hopeful nephrostomy tube exchange. Mr. Love is doing well. He continues to have some right-sided pain at times. He is continuing to have urine output that is clear and yellow. His creatinine on arrival was 1.52 and is now 1.75. His baseline is normal at 1.00. DISPOSITION: To [facility]. DIET: NPO. ACTIVITY: Not applicable. TIME SPENT: Approximately 75 minutes were spent on the discharge of this patient, more than half that time spent with the patient at the bedside reviewing the events leading up to this hospitalization, performing the physical examination, and reviewing my plan of care. GABRIELLA CONDON NP CC: Dr. Madrigal* [id number]/CPS #: [id number] VICTORIA
[2016-11-16 16:32] VITALS: BP 126/64
[2016-11-16] MEDS ORDERED: Doxazosin TAB* 2 MG PO SCH (18:00)
== END 2016-11-16 16:35 | disposition short-term general hospital (02) ==
LOC: ED 14:11 → MED 18:28
PROVIDERS: ADMIT Internal Medicine; ATTEND Internal Medicine
DX: K94.13 Enterostomy malfunction (principal); Y83.8 Other surgical procedures as the cause of abnormal reaction of the patient, or of later complication, without mention of misadventure at the time of the procedure; Y92.9 Unspecified place or not applicable; N17.9 Acute kidney failure, unspecified; Z85.51 Personal history of malignant neoplasm of bladder; Z85.528 Personal history of other malignant neoplasm of kidney; I48.0 Paroxysmal atrial fibrillation; Z79.01 Long term (current) use of anticoagulants; I10 Essential (primary) hypertension; I20.9 Angina pectoris, unspecified; G71.0 Muscular dystrophy; J44.9 Chronic obstructive pulmonary disease, unspecified; Z86.718 Personal history of other venous thrombosis and embolism; Z79.899 Other long term (current) drug therapy; Z88.1 Allergy status to other antibiotic agents; Z88.8 Allergy status to other drugs, medicaments and biological substances
CPT/HCPCS: 36415; 80048; 80053; 81003; 81015; 83605; 83690; 85025; 85610; 86140; 87040; 87077; 87086; 87186; 87641; 96374; 96375; 96376; 99291; A9270-GY; G0378; J2270; J2405; J2543

== ENCOUNTER 2017-08-08 07:05 | Emergency (ER) | payer MEDICARE ==
[2017-08-08] MEDS ORDERED: NS 0.9% 1000 ML* 1,000 ML IV ONE (07:28)
[2017-08-08 08:09] LABS: ABS Basophils 0 10^3/ul (0-0.2); ABS Eosinophils 0 10^3/ul (0-0.6); ABS Lymphocytes 0.2 10^3/ul (1.0-4.8); ABS Monocytes 0.5 10^3/ul (0-0.8); ABS Neutrophils 4.8 10^3/ul (1.5-7.7); ABS Nucleated RBC 0 10^3/ul; Eosinophil % 0.2 % (0-6); Hematocrit 36 % (42-52); Hemoglobin 12.1 g/dl (14.0-18.0); Lymphocyte % 3.4 % (25-47); Mean Corpuscular HGB Conc 34 g/dl (31-36); Mean Corpuscular Hemoglobin 33 pg (27-31); Mean Corpuscular Volume 97 fL (80-94); Mean Platelet Volume 9 um3 (7.4-10.4); Nucleated Red Blood Cells % 0; Platelet Count 164 10^3/ul (150-450); Red Blood Count 3.72 10^6/ul (4.0-5.4); Red Cell Distribution Width 15 % (10.5-15); White Blood Count 5.5 10^3/ul (3.5-10.8)
[2017-08-08 08:20] LABS: EGFR Non-African American 56.5 (>60)
[2017-08-08 08:25] LABS: INR 1.01 (0.77-1.02)
--- NOTE | 2017-08-08 08:51 | RAD ---
INDICATION: Altered mental status COMPARISON: Most recent comparison chest x-rays dated August 25, 2016 TECHNIQUE: Single AP portable view of the chest was obtained. FINDINGS: Image quality is compromised due to the relative inferiority of a portable chest x-ray. The heart and mediastinum exhibit normal size and contour. Relative to the previous chest x-ray the pulmonary vasculature appears engorged and indistinct. Otherwise the lungs are grossly clear. There is no evidence of a large pleural effusion. Visualized bones are normal for the patient's age. IMPRESSION: In the correct clinical setting the chest x-ray findings could be seen with mild pulmonary vascular congestion.
[2017-08-08 09:05] LABS: Urine Appearance Cloudy; Urine Blood 1+ (Negative); Urine Color Yellow; Urine Ketones Negative (Negative); Urine Protein 1+(30 mg/dL) (Negative); Urine Specific Gravity 1.015 (1.010-1.030); Urine Urobilinogen Negative (Negative)
--- NOTE | 2017-08-08 09:47 | ED ---
Ac Veras Tiffany, scribed for Daiana Friedman MD on 08/08/17 at 0825 . Complex/Multi-Sys Presentation - HPI Summary HPI Summary: The patient is an 81 year old M BIBA accompanied by daughter with a chief complaint of drowsiness since 06:00 this morning. The daughter rates the severity 4/10. Symptoms aggravated by nothing. Symptoms alleviated by nothing. Patient was supposed to have his Nephrostomy tube changed this morning at [facility] in [place]. Daughter reports that patient was not waking well this morning before his appointment. He denies chest pain and vomiting. Patient usually wears oxygen for his sleep apnea, but did not last night. Patients tube was last changed on 07/18/17. He has his tube changed every three weeks. This time, his tube plugged on 08/04/17 before his three-week follow up appointment. From labs on 07/19/17, BUN was 23 and creatinine was 1.32. GFR was 51. Dr. Aime Enamorado is patients urologist at [place]. Patient has history of bladder cancer and has one kidney. - History Of Current Complaint Chief Complaint: EDGeneral Time Seen by Provider: 08/08/17 07:28 Hx Obtained From: Patient, Family/Instrument Technician Helper - Daughter Hx From Patient Unobtainable Due To: Altered Mental Status Onset/Duration: Sudden Onset, Lasting Hours - 06:00 this morning, Still Present Timing: Constant Severity Currently: Mild - 4/10 Severity Initially: Moderate Location: Negative Character: Unable To Describe Aggravating Factor(s): Nothing Alleviating Factor(s): Nothing Associated Signs And Symptoms: Positive: Weakness, Other - NEGATIVE:chest pain and vomiting - Allergies/Home Medications Allergies/Adverse Reactions: Allergies Allergy/AdvReac Type Severity Reaction Status Date / Time atorvastatin [From Lipitor] Allergy Muscle Ache Verified 08/08/17 08:48 cephalexin Allergy Rash And Verified 08/08/17 08:48 Itching ezetimibe [From Zetia] Allergy Muscle Ache Verified 08/08/17 08:48 gemfibrozil [From Lopid] Allergy Muscle Ache Verified 08/08/17 08:48 sulfamethoxazole Allergy Swelling Verified 08/08/17 08:48 [From Bactrim] Of Face,Lips,& Throat trimethoprim [From Bactrim] Allergy Swelling Verified 08/08/17 08:48 Of Face,Lips,& Throat Home Medications: Home Medications Ascorbic Acid TAB* [Vitamin C TAB*] 500 mg PO DAILY 08/08/17 [History Confirmed 08/08/17] Ciprofloxacin TAB* [Cipro 250 MG Tab*] 250 mg PO BID 08/08/17 [History Confirmed 08/08/17] Doxazosin TAB* [Cardura TAB*] 2 mg PO QPM 08/08/17 [History Confirmed 08/08/17] Methenamine Hippurate TAB* [Hiprex TAB*] 1 gm PO BID 08/08/17 [History Confirmed 08/08/17] Warfarin TAB(*) [Coumadin TAB(*)] 9 mg PO DAILY 08/08/17 [History Confirmed ] PMH/Surg Hx/FS Hx/Imm Hx Previously Healthy: No Endocrine/Hematology History: Reports: Hx Anticoagulant Therapy Denies: Hx Diabetes Comment Only: Hx Thyroid Disease - family hx Cardiovascular History: Reports: Hx Angina, Hx Atrial Fibrillation, Hx Deep Vein Thrombosis, Hx Syncope, Other Cardiovascular Problems/Disorders - A-FIB, PATIENT STATES BEING CARED FOR BY DR. CHAWLA Denies: Hx Hypertension Respiratory History: Reports: Hx Sleep Apnea, Other Respiratory Problems/ Disorders - SLEEP APNEA Denies: Hx Chronic Obstructive Pulmonary Disease (COPD) GI History: Reports: Hx Irritable Bowel - r/t colectomy, Other GI Disorders - CONSTIPATION History: Reports: Hx Renal Disease - NEOPLASM OF THE BLADDER, Other Problems/Disorders - REMOVAL OF BLADDER DUE TO CANCER Denies: Hx Dialysis Musculoskeletal History: Reports: Other Musculoskeletal History - HX OF FALL, RESULTING IN BACK INJURY, PATIENT STATES Denies: Hx Back Problems Sensory History: Reports: Hx Cataracts, Hx Contacts or Glasses, Hx Hearing Problem Denies: Hx Hearing Aid Opthamlomology History: Reports: Hx Cataracts, Hx Contacts or Glasses Neurological History: Denies: Hx Dementia, Hx Seizures - Cancer History Cancer Type, Location and Year: bladder/prostate cancer 2009. kidney cancer Hx Chemotherapy: No Hx Radiation Therapy: No - Surgical History Surgery Procedure, Year, and Place: 2009-BLADDER REMOVAL. 2011-KIDNEY REMOVAL. 4-5 YRS AGO- RIGHT EYE CATARACT SURGERY Hx Anesthesia Reactions: No - Immunization History Date of Influenza Vaccine: 02/2017 Infectious Disease History: No Infectious Disease History: Reports: Hx of Known/Suspected MRSA Denies: Hx Clostridium Difficile, Hx Hepatitis, Hx Human Immunodeficiency Virus (HIV), Traveled Outside the [place] in Last 30 Days - Family History Known Family History: Positive: Hypertension, Other - Negative: malignant hyperthermia, anesthesia reaction - Social History Lives: With Family Alcohol Use: None Hx Substance Use: No Substance Use Type: Reports: None Hx Tobacco Use: No Smoking Status (MU): Never Smoked Tobacco Review of Systems Constitutional: Negative Negative: Chest Pain Respiratory: Negative Negative: Vomiting Skin: Negative Neurological: Other - Drowsiness Psychological: Normal All Other Systems Reviewed And Are Negative: Yes Physical Exam - Summary Physical Exam Summary: Appearance: Ill-appearing, moderate pain distress, Well-nourished, Responds to voice and commands, GCS 14 Skin: Warm, color reflects adequate perfusion Head: Normal Head/Face inspection Eyes: Conjunctiva clear ENT: Normal inspection Neck: Supple, no nodes, no JVD. Respiratory: Lungs clear, Normal breath sounds, no respiratory distress Cardio: RRR, No murmur, pulses normal, brisk capillary refill Abdomen: nephrostomy in RLQ, nephrostomy bag has clotted exudate, drainage beyond bag is clear, no CVA tenderness Bowel sounds: present Musculoskeletal: Strength Intact/ ROM intact. No calf tenderness. 1+ edema. Neuro: alert, muscle tone normal, facial symmetry, speech normal, sensory/motor intact, drowsy Psychological: Normal Triage Information Reviewed: Yes Vital Signs On Initial Exam: Initial Vitals Pulse Resp Pulse Ox 92 24 99 08/08/17 07:15 08/08/17 07:15 08/08/17 07:15 Vital Signs Reviewed: Yes Diagnostics - Vital Signs Vital Signs Temp Pulse Resp BP Pulse Ox 08/08/17 07:30 85 28 143/65 99 08/08/17 07:17 99.5 F 91 21 150/70 100 08/08/17 07:15 92 24 99 - Laboratory Lab Results: Lab Results 08/08/17 Range/Units 07:45 WBC 5.5 (3.5-10.8) 10^3/ul RBC 3.72 L (4.0-5.4) 10^6/ul Hgb 12.1 L (14.0-18.0) g/dl Hct 36 L (42-52) % MCV 97 H (80-94) fL MCH 33 H (27-31) pg MCHC 34 (31-36) g/dl RDW 15 (10.5-15) % Plt Count 164 (150-450) 10^3/ul MPV 9 (7.4-10.4) um3 Neut % (Auto) 86.6 H (38-83) % Lymph % (Auto) 3.4 L (25-47) % [place] % (Auto) 9.5 H (1-9) % Eos % (Auto) 0.2 (0-6) % Baso % (Auto) 0.3 (0-2) % Absolute Neuts (auto) 4.8 (1.5-7.7) 10^3/ul Absolute Lymphs (auto) 0.2 L (1.0-4.8) 10^3/ul Absolute Monos (auto) 0.5 (0-0.8) 10^3/ul Absolute Eos (auto) 0 (0-0.6) 10^3/ul Absolute Basos (auto) 0 (0-0.2) 10^3/ul Absolute Nucleated RBC 0 10^3/ul Nucleated RBC % 0 Result Diagrams: 08/08/17 07:45 08/08/17 07:45 Lab Statement: Any lab studies that have been ordered have been reviewed, and results considered in the medical decision making process. - Radiology CXR Radiology Interpretation Completed By: Radiologist - In the correct clinical setting the chest x-ray findings could be seen with mild pulmonary vascular congestion. ED physician has reviewed this radiology report. - EKG 0729 Cardiac Rate: NL - 91 BPM EKG Rhythm: Atrial Fibrillation ST Segment: Non-Specific Ectopy: None EKG Interpretation: Normal IVC. Normal QTC. [place] -1. EKG Comparison: No Significant Change - Compared with 08/26/16 Re-Evaluation - Re-Evaluation First Eval Re-Evaluation Time: 09:00 - daughter informed of elevated troponin and plans to transfer Change: Unchanged Complex Multi-Symp Course/Dx Course Of Treatment: EKG revealed no change compared with 08/26/16. CXR showed mild pulmonary vascular congestion per radiologist. Made aware of patients troponin level at 08:32. Discussed patient care with transfer center at [place] and Dr. Enamorado at 08:40. Patient accepted to [place] at 08:51. Patient will be transferred to the Emergency Department at [place]. Patient and patients daughter are agreeable with this plan. Daughter and pt realize that [facility] is not the closest facility available to provide this care ([facility] would be, no urology at [facility] today). Daughter is willing to sign ABN for transfer. Pt's troponin is elevated. He has no CP, EKG is not a STEMI. Troponins were trended, and the troponin has been .06 and .05 in the past. Pt is stable for transport for definitive care of his nephrostomy tube and altered mental status. - Diagnoses Differential Diagnoses/HQI/PQRI: Cardiac Ischemia, Metabolic Abnormality, Sepsis , Urinary Tract Infection Provider Diagnoses: Elevated troponin, Obstructed urostomy catheter, Afib, Altered mental status - Critical Care Time Critical Care Time: 30-74 min - 30 mins Discharge - Discharge Plan Condition: Stable Disposition: HOME The documentation as recorded by the Ac huynh Tiffany accurately reflects the service I personally performed and the decisions made by , Daiana Friedman MD.
[2017-08-08 10:27] VITALS: BP 134/78
--- NOTE | 2017-08-10 11:51 | ED ---
Progress - Progress Note Progress Note: Patient's urinalysis reveals greater than 100,000 Staphylococcus aureus. He was here for a clogged nephrostomy tube. His care is primarily given at [facility] so patient was transferred there. We will fax results. erlinda Smith, aware. Re-Evaluation - Re-Evaluation First Eval Re-Evaluation Time: 09:00 - daughter informed of elevated troponin and plans to transfer Change: Unchanged Course/Dx - Course Course Of Treatment: EKG revealed no change compared with 08/26/16. CXR showed mild pulmonary vascular congestion per radiologist. Made aware of patients troponin level at 08:32. Discussed patient care with transfer center at [place] and Dr. Enamorado at 08:40. Patient accepted to [facility] at 08:51. Patient will be transferred to the Emergency Department at [facility]. Patient and patients daughter are agreeable with this plan. Daughter and pt realize that [facility] is not the closest facility available to provide this care ([facility] would be, no [place] at [facility] [place] Daughter is willing to sign [facility] for transfer. Pt's troponin is elevated. He has no CP, EKG is not a STEMI. Troponins were trended, and the troponin has been .06 and .05 in the past. Pt is stable for transport for definitive care of his nephrostomy tube and altered mental status. - Diagnoses Provider Diagnoses: Elevated troponin, Obstructed urostomy catheter, Afib, Altered mental status - Critical Care Time Critical Care Time: 30-74 min - 30 mins
== END 2017-08-08 10:24 | disposition home or self-care (01) ==
LOC: ED 07:05
DX: R74.8 Abnormal levels of other serum enzymes (principal); R41.82 Altered mental status, unspecified; I48.91 Unspecified atrial fibrillation; T83.098A Other mechanical complication of other urinary catheter, initial encounter; Y84.6 Urinary catheterization as the cause of abnormal reaction of the patient, or of later complication, without mention of misadventure at the time of the procedure; Y92.9 Unspecified place or not applicable; Z88.8 Allergy status to other drugs, medicaments and biological substances; Z88.2 Allergy status to sulfonamides; Z79.899 Other long term (current) drug therapy; Z79.01 Long term (current) use of anticoagulants
CPT/HCPCS: 36415; 71045; 80053; 81003; 81015; 82550; 83605; 83735; 84443; 84484; 85025; 85610; 86140; 87077; 87086; 87186; 93005; 96360; 99291